=== PATIENT | female | born 1950 | race Caucasian/White ===

== ENCOUNTER 2017-05-12 22:03 | Inpatient (IN) ==
[2017-05-12] MEDS ORDERED: SODIUM CHLORIDE 0.9% 1,000 ML IV STA (22:34)
[2017-05-12] MEDS ORDERED: MEROPENEM 1,000 MG in SODIUM CHLORIDE 0.9% 100 ML IV STA (22:35)
[2017-05-12] MEDS ORDERED: MEROPENEM 1,000 MG VIAL IV ONE (22:42)
[2017-05-12 23:01] LABS: ABG HCO3 16.5 MMOL/L (20-26); ABG Oxygen Saturation 97.9 % (95-100); ABG PCO2 22.3 MM HG (35-48); ABG PH 7.487 (7.35-7.45); ABG PO2 98.9 MM HG (80-95); ABG TCO2 17.2 MMOL/L (23-27); Pt O2 Delivery Device Room Air
[2017-05-12] MEDS ORDERED: HALOPERIDOL 5 MG/ML AMP ONE (23:11)
[2017-05-12] MEDS ORDERED: HALOPERIDOL 5 MG/ML AMP IV STA (23:40)
[2017-05-12 23:42] LABS: Basophils % 0.2 % (0.0-0.8); Eosinophils % 0.1 % (0.00-10.9); Hematocrit 31.8 VOL% (35.7-47.0); Hemoglobin 11.8 GM/DL (12.0-16.0); Immature Granulocytes % 0.6 %; Immature Granulocytes Absolute 0.08 #; Lymphocytes # 0.8 10*3/uL (1.4-4.0); Lymphocytes % 6.4 % (21.3-54.2); Mean Corpuscular HGB Conc 37.1 GM/DL (32-36); Mean Corpuscular Hemoglobin 31 PG (27-34); Mean Corpuscular Volume 84.6 FL (87-102); Mean Platelet Volume 8.8 FL (9.6-12.0); Monocytes # 0.8 10*3/uL (0.11-0.8); Monocytes % 6.4 % (1.7-12.7); Neutrophils # 11.1 10*3/uL (1.4-7.4); Neutrophils % 86.3 % (38.7-73.9); Platelet Count 348 T/CUMM (130-400); Red Blood Count 3.76 MC/CUMM (3.8-5.5); Red Cell Distribution Width 13.3 % (9.3-17.3); White Blood Count 12.9 T/CUMM (4-12)
[2017-05-12] MEDS ORDERED: MAGNESIUM SULF RIDER 2 GM in PREMIX 1 EACH IV STA (23:47)
[2017-05-12] MEDS ORDERED: POTASSIUM CHLORIDE RIDER 20 MEQ in PREMIX 1 EACH IV STA (23:47)
[2017-05-12 23:49] LABS: Apearance,Urine CLOUDY (Clear); Bilirubin,Urine Negative (Negative); Blood, Urine Small mg/dL (Negative); Glucose,Urine (UA) Negative (Negative); Hyaline Casts,Urine 18 /LPF (0-3); Ketones,Urine 80 mg/dL (Negative); Mucus,Urine Occasional /LPF (Occasional); Nitrite,Urine Negative (Negative); Protein,Urine 100 MG/DL; RBC,Urine 28 /HPF (0-4); Urine Color Yellow (Yellow); Urine Urobilinogen < 2.0 EU/DL (0.2-1.0); WBC,Urine 576 /HPF (0-6)
[2017-05-12 23:51] LABS: Barbiturates Screen,Urine Positive (Negative); Benzodiazepines Screen,Urine Negative (Negative); Cannabinoid Screen,Urine Negative (Negative); Opiate Screen,Urine Positive (Negative); Phencyclidine Screen,Urine Negative (Negative)
[2017-05-12 23:52] LABS: INR 1.7; PT Patient Result 18.7 SECS
[2017-05-13] LABS: Lactic Acid 1.9 MMOL/L (0.4-2.0)
--- NOTE | 2017-05-13 | Emergency Department Note ---
Alban Ni Emily, am scribing for, and in the presence of, Raman Riggs MD 23: 00. Keely Ni Charles R, MD, personally performed the services described in this documentation, ascribed by Fe Phoenix in my presence, and it is both accurate and complete . Arrival - Arrival Chief Complaint: Altered Mental Status Stated Complaint: altered mental status ED Nursing Triage Note: Patient to ED via EMS as a transfer from [facility] ED for further evaluation of AMS, UTI, and hyponatremia. Patient was seen there with c/o AMS, weakness, and generalized pain. Patient is under pain management and transferring ED gave patient Narcan, Haldol, and Ativan for possible over use of her home medications that include norco and benzo's. Patient arrives to our ED with mumbled, slow speech, asking for "Imani" and was not able to provide answers to assess her orientation. Mode of Arrival: Stretcher Limitations: Altered Mental Status Source: RN Notes Reviewed Time Seen by Provider: 05/12/17 22:29 - History of Present Illness HPI Narrative: Pt is a 67 y/o female who was transferred from [facility] to ED for further evaluation of AMS, UTI, and hyponatremia. [facility] gave pt Narcan, Haldol, and Ativan for possible over use of her home medications (under pain management) that include norco and benzos. Pt was seen there with c/o AMS , weakness, and generalized pain. Pt is smacking lips, mumbling, and generalized weakness from sedatives FRAME HAND, along with beasley cath (from [facility]) in ED. Family is not in room with pt, at this time. According to chart from other facility, pt takes coumadin. Pt had CT Head wo contrast done at [facility] in which shows: When compared 12/26/16, no acute intracranial pathology. Chronic small vessel ischemic change of the deep white matter. 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 Along with EKG of NSR of 91, and cannot rule out anterior infract, age undetermined with abnormal ECG. Onset (ago): hour(s) Consistency: constant Severity: moderate Severity scale (1-10): 5 Quality: other (altered) Date of Last Menstrual Period: unknown Allergies/Adverse Reactions: Allergies Allergy/AdvReac Type Severity Reaction Status Date / Time acetaminophen Allergy RASH Verified 05/12/17 22:21 [From Darvocet-N] cephalexin [From Keflex] Allergy RASH Verified 05/12/17 22:21 Penicillins Allergy RASH Verified 05/12/17 22:21 propoxyphene Allergy RASH Verified 05/12/17 22:21 [From Darvocet-N] Sulfa (Sulfonamide Allergy RASH Verified 05/12/17 22:21 Antibiotics) Tetracycline Allergy RASH Verified 05/12/17 22:21 Home Medications: Home Medications Medication Instructions Recorded Confirmed Type amLODIPine [Norvasc] 5 mg PO DAILY #30 tablet 03/06/16 08/27/16 Rx levETIRAcetam [Levetiracetam] 500 mg PO BID #60 tablet 03/06/16 08/27/16 Rx Carvedilol [Coreg] 12.5 mg PO BID 08/27/16 08/27/16 History DULoxetine [Cymbalta] 30 mg PO BID 08/27/16 08/27/16 History Furosemide Tab [Lasix Tab] 20 mg PO DAILY PRN 08/27/16 08/27/16 History Gabapentin Cap/Tab [Neurontin 300 mg PO TID 08/27/16 08/27/16 History Cap/Tab] Topiramate 25 mg PO BID 08/27/16 08/27/16 History Triamterene/Hydrochlorothiazid 1 each PO DAILY 08/27/16 08/27/16 History [Triamterene-Hctz 37.5-25 mg Cp] Zolpidem Tartrate 10 mg PO BEDTIME 08/27/16 08/27/16 History clonazePAM TAB [KlonoPIN] 0.5 mg PO BID 08/27/16 08/27/16 History HYDROcodone/ACETAMIN 10-325 [[place] 1 tablet PO Q6HR #20 tablet 08/29/16 Rx 10-325] Warfarin [Coumadin] 5 mg PO DAILY@1800 #60 tablet 08/29/16 Rx Review of System - Review of System ROS unobtainable: due to mental status (secondary to UTI and Sedatives) Medical,Surgical,& Family Hx - Medical History Cardio: History of: CHF, CAD, Hypertension, [place], Pacemaker Psychological: History of: Anxiety Disorders, Behavior Problems, Depression Neurology: History of: Seizures, TIA HEENT: History of: Eye Problem (cataracts) Rheumatology: History of;: Fibromyalgia Respiratory: History of: COPD Gastrointestinal: History of: GERD, Hemorrhoids Musculoskeletal: History of: Back/Neck Problems, Musculoskeletal Problems (t7- t12 compression fractures) - Surgical History Cardiac Surgeries: Sugical HX of: Cardiac Catheterization, Cardiac Surgery (MVR and ?CABG) HEENT Surgeries: Surgical HX of: Tonsilectomy & Adenoidectomy Abdominal Surgeries: Surgical HX of: EGD Orthopedic Surgeries: Surgical HX of;: Orthopedic Surgery, Total Hip Replacement (left) - Family History Family History: Reports;: Family Cancer, Family Diabetes, Family Heart Disease ( Mom at age 71 of [place] and Dad at age 61 of [place]. ), Family Hypertension, Family Stroke - Social History Smoking Status: Unknown if ever smoked Frequency of Alcohol Use: Unknown Type of Drug Use: Unknown Marital Status: Single Lives With:: Alone Functional capacity: independent ambulation Exam Vital Signs: Vital Signs Temperature 97.9 F 05/12/17 22:06 Pulse Rate 100 H 05/12/17 22:06 Respiratory Rate 18 05/12/17 22:06 Blood Pressure 175/73 05/12/17 22:06 O2 Sat by Pulse Oximetry 97 05/12/17 22:06 - General Exam limited due to: other (expressive aphasia) - Head Head exam: Present: atraumatic, normocephalic - Eye Eye exam: Present: other (dilated pupils, not pinpoint) - ENT ENT exam: Present: mucous membranes dry (smacking lips). Absent: mucous membranes moist - Neck Neck exam: Present: full ROM - Chest Chest inspection: Present: symmetric chest wall rise - Respiratory Respiratory exam: Present: rhonchi (bilateral). Absent: accessory muscle use, respiratory distress - Cardiovascular Cardiovascular exam: Present: tachycardia, normal heart sounds - Abdominal Exam Abdominal exam: Present: soft, normal bowel sounds - Extremities Exam Extremities exam: Present: full ROM. Absent: pedal edema - Neurological Exam Neurological exam: Present: alert, oriented X3, CN II-XII intact. Absent: motor sensory deficit - Skin Skin exam: Present: warm, dry Course - Consultations Consultation #1: Hospitalist will admit patient Time: 23:45 Results - Labs CBC & BMP: 05/12/17 23:01 Lab Results: I have reviewed the patients labs Labs: Laboratory Tests 05/12/17 22:55 ABG pH 7.487 H ABG pCO2 22.3 L ABG pO2 98.9 H ABG HCO3 16.5 L ABG Total CO2 17.2 L ABG O2 Saturation 97.9 ABG Base Excess -5.0 L FiO2 21.00 Laboratory Tests 05/12/17 23:01 WBC 12.9 H RBC 3.76 L Hgb 11.8 L Hct 31.8 L MCV 84.6 L MCHC 37.1 H Plt Count 348 MPV 8.8 L Neut % (Auto) 86.3 H Lymph % (Auto) 6.4 L Neut # (Auto) 11.1 H Lymph # (Auto) 0.8 L Laboratory Tests 05/12/17 23:01 Urine Color Yellow Urine Appearance Cloudy Urine pH 6.0 Ur Specific [place] 1.010 Urine Protein 100 Urine Glucose (UA) Negative Urine Ketones 80 Urine Blood Small Urine Nitrate Negative Urine Urobilinogen < 2.0 H Urine Leukocytes Large H Urine RBC 28 Urine WBC 576 Urine WBC Clumps Many Hyaline Casts 18 Urine Mucus Occasional Critical Care Time Critical Care Time: Yes Total Critical Care Time: 60 Disposition Clinical Impression: Altered mental status, Sepsis, Hyponatremia, Hypomagnesemia, UTI (urinary tract infection), Confusion, Delirium, Hypokalemia, Opiate intoxication Case discussed with: patient Disposition: Still a Patient Condition: Guarded Time of Disposition: 23:46
[2017-05-13] MEDS ORDERED: HYDROCORTISONE 100 MG VIAL IV STA (00:01)
[2017-05-13] MEDS ORDERED: MAGNESIUM SULF RIDER 50 ML IV ONE (00:02)
[2017-05-13 00:03] LABS: Alanine Aminotransferase 23 U/L (13-56); Albumin 3.9 G/DL (3.4-5.0); Alkaline Phosphatase 133 U/L (45-117); Aspartate Amino Transferase 28 U/L (0-37); Blood Urea Nitrogen 5 MG/DL (7-18); Calcium 8.8 MG/DL (8.5-10.1); Glucose 133 MG/DL (74-106); Magnesium 1.5 MG/DL (1.8-2.4); Osmolality,Calculated 238.3 MOS/KG (273-304); Potassium 3.5 MMOL/L (3.5-5.1); Total Protein 7.9 G/DL (6.4-8.3)
[2017-05-13 00:05] LABS: Ammonia 20 UMOL/L (11-32)
[2017-05-13 00:38] LABS: Prolactin 28.3 NG/ML
[2017-05-13 00:40] LABS: Troponin I Only 0.089 NG/ML (0.00-0.045)
[2017-05-13 00:41] LABS: Sodium 119 MMOL/L (136-145)
[2017-05-13] MEDS ORDERED: HYDROCORTISONE 100 MG VIAL ONE (00:45)
--- NOTE | 2017-05-13 00:55 | Hospitalist History & Physical ---
Assessment and Plan (1) Opiate intoxication Status: Acute Current Visit: Yes (2) Altered mental status Status: Resolved Current Visit: No (3) Hypertension Status: Chronic Current Visit: No (4) Coronary artery disease Status: Chronic Current Visit: No Qualifiers: Coronary Disease-Associated Artery/Lesion type: [place] artery [place] vs. transplanted heart: [place] heart Associated angina: without angina Qualified Code(s): I25.10 - Atherosclerotic heart disease of [place] coronary artery without angina pectoris (5) Hyponatremia Status: Acute Current Visit: No (6) Mitral valve replaced Status: Chronic Current Visit: No (7) Sepsis Status: Acute Current Visit: Yes (8) Hyponatremia Status: Acute Current Visit: Yes (9) UTI (urinary tract infection) Status: Acute Current Visit: Yes (10) Confusion Status: Acute Assessment and plan: Plan for this patient will be admitting her to the unit. Will start on IV antibiotics for her urinary tract infection. Will follow sepsis protocol. We will water restrict her to 1.5 L give her normal saline. Vital signs are stable. Repeat labs at 7 AM and have Haldol available as needed for agitation. Patient is on Coumadin for problems with her mitral valve. Her mental status makes it very difficult to assess compliance with her Coumadin. She subtherapeutic at 1.7 right now. Right now she is too sedated to take her Coumadin therefore I am going to order Lovenox 1 ngoc per weekly every 12 hours. Patient's magnesium is being replaced in the ER. Current Visit: Yes (11) Delirium Status: Acute Current Visit: Yes History of Present Illness Chief complaint: Altered mental status History of present illness: Ms. Iglesias is a 67 year old female with past medical history significant for altered mental status, hypokalemia, mitral valve replacement, chronic anticoagulation who was received as a transfer from [facility]. She presented there with altered mental status urinary tract infection hyponatremia. She was found to be having generalized weakness. She is under pain management. The patient became agitated and they gave her Narcan Haldol and Ativan for possible overuse of her home medications. She arrived at our hospital mumbling with slurred speech asking for Stacey and was not able to provide any answers or to assess orientation. Currently she is significantly sedated vital signs are stable. She has been given Haldol here. Home Medications Medication Instructions Recorded Confirmed Type amLODIPine [Norvasc] 5 mg PO DAILY #30 tablet 03/06/16 08/27/16 Rx levETIRAcetam [Levetiracetam] 500 mg PO BID #60 tablet 03/06/16 08/27/16 Rx Carvedilol [Coreg] 12.5 mg PO BID 08/27/16 08/27/16 History DULoxetine [Cymbalta] 30 mg PO BID 08/27/16 08/27/16 History Furosemide Tab [Lasix Tab] 20 mg PO DAILY PRN 08/27/16 08/27/16 History Gabapentin Cap/Tab [Neurontin 300 mg PO TID 08/27/16 08/27/16 History Cap/Tab] Topiramate 25 mg PO BID 08/27/16 08/27/16 History Triamterene/Hydrochlorothiazid 1 each PO DAILY 08/27/16 08/27/16 History [Triamterene-Hctz 37.5-25 mg Cp] Zolpidem Tartrate 10 mg PO BEDTIME 08/27/16 08/27/16 History clonazePAM TAB [KlonoPIN] 0.5 mg PO BID 08/27/16 08/27/16 History HYDROcodone/ACETAMIN 10-325 [[place] 1 tablet PO Q6HR #20 tablet 08/29/16 Rx 10-325] Warfarin [Coumadin] 5 mg PO DAILY@1800 #60 tablet 08/29/16 Rx Allergies Allergy/AdvReac Type Severity Reaction Status Date / Time acetaminophen Allergy RASH Verified 05/12/17 22:21 [From Darvocet-N] cephalexin [From Keflex] Allergy RASH Verified 05/12/17 22:21 Penicillins Allergy RASH Verified 05/12/17 22:21 propoxyphene Allergy RASH Verified 05/12/17 22:21 [From Darvocet-N] Sulfa (Sulfonamide Allergy RASH Verified 05/12/17 22:21 Antibiotics) Tetracycline Allergy RASH Verified 05/12/17 22:21 Medical,Surgical,& Family Hx - Medical History Cardio: History of: CHF, CAD, Hypertension, [place], Pacemaker Psychological: History of: Anxiety Disorders, Behavior Problems, Depression Neurology: History of: Seizures, TIA HEENT: History of: Eye Problem (cataracts) Rheumatology: History of;: Fibromyalgia Respiratory: History of: COPD Gastrointestinal: History of: GERD, Hemorrhoids Musculoskeletal: History of: Back/Neck Problems, Musculoskeletal Problems (t7- t12 compression fractures) - Surgical History Cardiac Surgeries: Sugical HX of: Cardiac Catheterization, Cardiac Surgery (MVR and ?CABG) HEENT Surgeries: Surgical HX of: Tonsilectomy & Adenoidectomy Abdominal Surgeries: Surgical HX of: EGD Orthopedic Surgeries: Surgical HX of;: Orthopedic Surgery, Total Hip Replacement (left) - Family History Family History: Reports;: Family Cancer, Family Diabetes, Family Heart Disease ( Mom at age 71 of [place] and Dad at age 61 of [place]. ), Family Hypertension, Family Stroke - Social History Smoking Status: Unknown if ever smoked Frequency of Alcohol Use: Unknown Type of Drug Use: Unknown ROS unobtainable: due to delirium Exam - Constitutional Vitals: Period Temp Pulse Resp BP Sys/Reyes Pulse Ox Last 24 Hr 97.9 F-97.9 F 100-100 18-18 175-175/73-73 97 - General Exam limited due to: Delirium secondary to either UTI or Haldol - Head Head exam: Present: atraumatic, normocephalic - Eye Eye exam: Present: other (dilated pupils, not pinpoint) but reactive - ENT ENT exam: Present: mucous membranes dry - Neck Neck exam: Present: full ROM - Chest Chest inspection: Present: symmetric chest wall rise - Respiratory Respiratory exam: Present: rhonchi (bilateral). Absent: accessory muscle use, respiratory distress - Cardiovascular Cardiovascular exam: Present: tachycardia, normal heart sounds - Abdominal Exam Abdominal exam: Present: soft, normal bowel sounds - Extremities Exam Extremities exam: Present: full ROM. Absent: pedal edema - Neurological Exam Neurological exam: Present: alert, oriented X3, CN II-XII intact. Absent: motor sensory deficit - Skin Skin exam: Present: warm, dry Results - Labs CBC & BMP: 05/12/17 23:01 05/12/17 23:01
[2017-05-13] MEDS ORDERED: ALBUTEROL 2.5 MG/3 ML NEB RESP TX PRN (00:59)
[2017-05-13] MEDS ORDERED: ONDANSETRON 4 MG/2 ML VIAL IV PRN (00:59)
[2017-05-13] MEDS ORDERED: SODIUM CHLORIDE 0.9% 1,000 ML IV SCH (01:00)
[2017-05-13] MEDS ORDERED: HALOPERIDOL 5 MG/ML AMP IV PRN (01:07)
[2017-05-13] MEDS: ENOXAPARIN 80 MG/0.8 ML SYRINGE SUBCUT SCH ×2 (02:05→12:58)
[2017-05-13] MEDS: PANTOPRAZOLE 40 MG VIAL IV SCH (02:30)
[2017-05-13] MEDS: hydrALAZINE 20 MG/1 ML VIAL IV PRN (02:45)
[2017-05-13] MEDS: MEROPENEM 1,000 MG in SODIUM CHLORIDE 0.9% 100 ML IV SCH ×3 (03:00→16:00)
[2017-05-13 03:41] LABS: Apearance,Urine CLEAR (Clear); Bilirubin,Urine Negative (Negative); Blood, Urine Negative (Negative); Glucose,Urine (UA) 50 mg/dL (Negative); Ketones,Urine 80 mg/dL (Negative); Mucus,Urine Occasional /LPF (Occasional); Nitrite,Urine Negative (Negative); Protein,Urine 30 MG/DL; Urine Color Straw (Yellow); Urine Specific Gravity 1.008 (1.001-1.035); Urine Urobilinogen < 2.0 EU/DL (0.2-1.0); WBC,Urine 6 /HPF (0-6)
[2017-05-13 05:41] LABS: INR 1.8; PT Patient Result 19.4 SECS
--- NOTE | 2017-05-13 06:52 | XRay Report ---
XR chest 1V portable Indication: Altered mental status Comparison: 05 March 2016 Findings: The heart and mediastinum are stable in size and configuration with cardiac surgery changes. Pacemaker device is unchanged in position. The pulmonary vascularity is normal in caliber. Lung volumes are increased with prominent bronchial markings. No lung infiltrates, effusions, pneumothorax or other abnormality is demonstrated. Impression: Chronic lung and cardiac surgery changes. No acute process or significant change. PROCEDURE INTERPRETED AT [facility] DEPARTMENT OF RADIOLOGY Final Report Signed by: Dr. Christian Velasco
[2017-05-13 07:12] LABS: Basophils % 0.1 % (0.0-0.8); Hematocrit 33.5 VOL% (35.7-47.0); Hemoglobin 12.2 GM/DL (12.0-16.0); Immature Granulocytes % 0.9 %; Immature Granulocytes Absolute 0.11 #; Lymphocytes # 0.7 10*3/uL (1.4-4.0); Lymphocytes % 5.6 % (21.3-54.2); Mean Corpuscular HGB Conc 36.4 GM/DL (32-36); Mean Corpuscular Hemoglobin 31 PG (27-34); Mean Corpuscular Volume 85.5 FL (87-102); Mean Platelet Volume 8.8 FL (9.6-12.0); Monocytes # 0.5 10*3/uL (0.11-0.8); Monocytes % 3.8 % (1.7-12.7); Neutrophils % 89.6 % (38.7-73.9); Platelet Count 345 T/CUMM (130-400); Red Blood Count 3.92 MC/CUMM (3.8-5.5); Red Cell Distribution Width 13.4 % (9.3-17.3); White Blood Count 12.3 T/CUMM (4-12)
--- NOTE | 2017-05-13 08:37 | EKG Report ---
Stationary ECG Study [facility] ER Test Date: 05/12/2017 10:48:49 PM Pat Name: ARVIN ARIZA Department: Room: 128 Gender: F Bilingual Office Assistant: : 1950 Requested by: Raman Ramirez Order Number: [id number] Roman MD: ALISSON WALL Intervals [place] Rate: 104 P: 68 NV: 120 QRS: 50 QRSD: 109 T: 48 QT: 348 QTc: 408 Interpretive Statements SINUS TACHYCARDIA POSSIBLE INFERIOR MYOCARDIAL INFARCTION, PROBABLY OLD ST DEPRESSION, CONSIDER SUBENDOCARDIAL INJURY Electronically Signed On 05-13-17 10:37:06 CDT by ALISSON WALL [email or web address]
[2017-05-13] MEDS ORDERED: PANTOPRAZOLE 40 MG TABLET PO SCH (09:00)
[2017-05-13] MEDS: SODIUM CHLORIDE 3% INJ 500 ML IV SCH (09:20)
[2017-05-13 09:29] LABS: Bilirubin,Total 0.5 MG/DL (0.2-1.0); Calcium 8.7 MG/DL (8.5-10.1); Osmolality,Calculated 237.3 MOS/KG (273-304); Potassium 3.2 MMOL/L (3.5-5.1); Total Protein 8.2 G/DL (6.4-8.3)
--- NOTE | 2017-05-13 11:59 | Hospitalist Progress Note ---
Assessment and Plan (1) Sepsis Status: Acute Assessment and plan: Due to fever and altered mental status will obtain an LP. Consult Dr. Purdy for infectious disease, continue meropenem Current Visit: Yes (2) Delirium Status: Acute Assessment and plan: Patient given Narcan already but did not improve her mental status. Sodium is low we will start her on 3% normal saline. Concerned about meningitis or encephalitis. Will have Dr. Purdy and Dr. Le to see. Would like to get MRI when she is able to hold still. Will use Ativan for agitation Current Visit: Yes (3) Hypertension Status: Chronic Assessment and plan: Patient unable to take p.o. medicines at this time will use hydralazine as needed as needed Current Visit: No (4) Seizure disorder Status: Chronic Assessment and plan: Patient unable to take anything orally at this time will restart Keppra 500 mg IV every 12 hours Current Visit: No (5) Mitral valve replaced Status: Chronic Assessment and plan: received bioprosthetic valve, cont lovenox, hold coumadin not taking oral meds at this time. Current Visit: No (6) Hyponatremia Status: Acute Assessment and plan: Continue 3% normal saline will monitor sodium every 2 Current Visit: Yes (7) Hypomagnesemia Status: Acute Assessment and plan: Replaced, will recheck today Current Visit: Yes (8) UTI (urinary tract infection) Status: Acute Assessment and plan: Continue meropenem, await cultures Current Visit: Yes (9) Hypokalemia Status: Acute Assessment and plan: Replacing recheck in a.m. Current Visit: Yes (10) Opiate intoxication Status: Acute Assessment and plan: Hold all narcotics and sedating medicines at this time. Patient had received Narcan but did not improve her mental status. Current Visit: Yes Hospitalist: Subjective Interval history: Patient combative and confused. Neck seems stiff. She is running fevers. I have asked Dr. Purdy to see her today. Exam - Constitutional Vitals: Period Temp Pulse Resp BP Sys/Reyes Pulse Ox Last 24 Hr 97.9 F-100.0 F 77-110 12-22 98-212/67-113 96-99 Exam: Heart Rate-[tachy] Lungs-[CTAB] GI-[+bs soft, NT] Ext-[no edema] Neuro [Motor 5/5, combative, agitated, tardive dyskinesai psych agitated mood and affect General [mild acute distress] Results - Labs CBC & BMP: 05/13/17 07:07 05/13/17 10:40 Lab Results: I have reviewed the past 24 hour labs - Diagnostic Findings Procedure: Chest x-ray: report reviewed by me (Nothing acute but does have chronic COPD), CT: report reviewed by me (Head shows left frontal and cerebellar changes which are old nothing new per outside facility records)
[2017-05-13 13:28] LABS: Calcium 8.2 MG/DL (8.5-10.1); Osmolality,Calculated 245.6 MOS/KG (273-304); Potassium 3.4 MMOL/L (3.5-5.1)
[2017-05-13] MEDS: POTASSIUM CHLORIDE RIDER 10 MEQ in PREMIX 1 EACH IV SCH ×4 (13:30→21:56)
[2017-05-13] MEDS: LORazepam 2 MG/1 ML VIAL IV PRN ×2 (13:42→22:05)
--- NOTE | 2017-05-13 15:21 | Infectious Disease Consult ---
Assessment and Plan (1) Confusion Status: Acute Assessment and plan: Not sure cause, suspect toxic metabolic rather than infectious. She really does not have significant fever. Her neck is supple some not convinced about meningitis but it could be viral. Recommend agents: 1. Agree with lumbar puncture and studies ordered 2. Add acyclovir pending receipt of LP results Thank you very much for the consult. Will follow. Discussed with Dr. Ramsey Current Visit: Yes (2) UTI (urinary tract infection) Status: Acute Assessment and plan: She had pyuria on admission but that has resolved today. She is on empiric meropenem as she is allergic to cephalosporins and penicillin. Will follow up on urine culture results. Current Visit: Yes (3) Hyponatremia Status: Acute Current Visit: No (4) Mitral valve replaced Status: Chronic Current Visit: No History of Present Illness Chief complaint: Fever History of present illness: History obtained from chart as patient was completely confused. Ms. Iglesias is a 67 year old female who presented also with altered mental state. She is mostly nonverbal but is awake and fiddles with everything. Apparently she was noted to be confused and so taken to an outside hospital. There she was found to be severely hyponatremic and so she is transferred here. Temperature of 100 F was noted. Urinalysis suggestive of urinary tract infection. I am asked to assist with management. She is admitted to ICU because of confusion; she has not required vasopressor support. Patient apparently has frequent emergency room visits to the same outside hospital she was transferred here from. Home Medications Medication Instructions Recorded Confirmed Type amLODIPine [Norvasc] 5 mg PO DAILY #30 tablet 03/06/16 08/27/16 Rx levETIRAcetam [Levetiracetam] 500 mg PO BID #60 tablet 03/06/16 08/27/16 Rx Carvedilol [Coreg] 12.5 mg PO BID 08/27/16 08/27/16 History DULoxetine [Cymbalta] 30 mg PO BID 08/27/16 08/27/16 History Furosemide Tab [Lasix Tab] 20 mg PO DAILY PRN 08/27/16 08/27/16 History Gabapentin Cap/Tab [Neurontin 300 mg PO TID 08/27/16 08/27/16 History Cap/Tab] Topiramate 25 mg PO BID 08/27/16 08/27/16 History Triamterene/Hydrochlorothiazid 1 each PO DAILY 08/27/16 08/27/16 History [Triamterene-Hctz 37.5-25 mg Cp] Zolpidem Tartrate 10 mg PO BEDTIME 08/27/16 08/27/16 History clonazePAM TAB [KlonoPIN] 0.5 mg PO BID 08/27/16 08/27/16 History HYDROcodone/ACETAMIN 10-325 [[place] 1 tablet PO Q6HR #20 tablet 08/29/16 Rx 10-325] Warfarin [Coumadin] 5 mg PO DAILY@1800 #60 tablet 08/29/16 Rx Allergies Allergy/AdvReac Type Severity Reaction Status Date / Time acetaminophen Allergy RASH Verified 05/12/17 22:21 [From Darvocet-N] cephalexin [From Keflex] Allergy RASH Verified 05/12/17 22:21 Penicillins Allergy RASH Verified 05/12/17 22:21 propoxyphene Allergy RASH Verified 05/12/17 22:21 [From Darvocet-N] Sulfa (Sulfonamide Allergy RASH Verified 05/12/17 22:21 Antibiotics) Tetracycline Allergy RASH Verified 05/12/17 22:21 ROS unobtainable: due to mental status Medical,Surgical,& Family Hx - Medical History Cardio: History of: CHF, CAD, Hypertension, [place], Pacemaker Psychological: History of: Anxiety Disorders, Behavior Problems, Depression Neurology: History of: Seizures, TIA HEENT: History of: Eye Problem (cataracts) Rheumatology: History of;: Fibromyalgia Respiratory: History of: COPD Gastrointestinal: History of: GERD, Hemorrhoids Musculoskeletal: History of: Back/Neck Problems, Musculoskeletal Problems (t7- t12 compression fractures) - Surgical History Cardiac Surgeries: Sugical HX of: Cardiac Catheterization, Cardiac Surgery (MVR and ?CABG) HEENT Surgeries: Surgical HX of: Tonsilectomy & Adenoidectomy Abdominal Surgeries: Surgical HX of: EGD Orthopedic Surgeries: Surgical HX of;: Orthopedic Surgery, Total Hip Replacement (left) - Family History Family History: Reports;: Family Cancer, Family Diabetes, Family Heart Disease ( Mom at age 71 of [place] and Dad at age 61 of [place]. ), Family Hypertension, Family Stroke - Social History Smoking Status: Unknown if ever smoked Frequency of Alcohol Use: Unknown Type of Drug Use: Unknown Infectious Disease Exam H&P - Constitutional Vitals: Vital Signs Temp Pulse Resp BP Pulse Ox 100.0 F H 83 20 174/91 98 05/13/17 12:00 05/13/17 14:00 05/13/17 15:00 05/13/17 14:00 05/13/17 14:00 Intake and Output 05/12/17 05/13/17 05/13/17 23:59 07:59 15:59 Intake Total 200 / 200 1350 / 1350 100 / 100 Output Total 505 / 505 500 / 500 Balance 200 / 200 845 / 845 -400 / -400 Intake: IV 1350 / 1350 100 / 100 Magnesium Sulf Robert 2 gm 50 / 50 /50 ml In Premix 1 Each @ 25 mls/hr IV 1X ED STA Rx#:[id number] Merrem 1,000 mg In Ns 100 200 / 200 ml @ 200 mls/hr IV Q8H JESENIA Rx#:[id number] Potassium Chloride Robert 100 / 100 10 Meq/100 ml In Premix 1 Each @ 100 mls/hr IV Q1H JESENIA Rx#:[id number] Potassium Chloride Robert 100 / 100 20 Meq/100 ml In Premix 1 Each @ 50 mls/hr IV 1X ED STA Rx#:[id number] Ns 1,000 ml @ 999 mls/hr 1000 / 1000 IV 1X ED BOLUS STA Rx#: [id number] Intake - Additional IV 200 / 200 Volume (mLs) Right Forearm 200 / 200 Output: Urine 505 / 505 500 / 500 Other: Voiding Method Indwelling Catheter Indwelling Catheter Weight 72.575 kg 56.064 kg Patient Weight 05/13/17 23:59 Weight 56.064 kg Exam: General: Patient agitated, pulling at everything, no verbal interaction no eye contact HEENT: Mucous membranes pink and moist, anicteric acyanotic, NATALIE, would not open her mouth inspection Neck: Supple, no thyroid gland enlargement Respiratory system: Breath sounds vesicular, no crepitations or wheezes Cardiovascular: Normal S1 and S2, no murmurs appreciated Abdomen: Normal bowel sounds, soft nontender throughout, no organomegaly or mass Genitourinary: No suprapubic pain or bladder distention, clear urine from [place] catheter Extremities: no edema Skin: No rash Reports - Labs CBC & BMP: 05/13/17 07:07 05/13/17 14:38 Labs: Laboratory Results - last 24 hr 05/12/17 05/12/17 05/12/17 22:55 23:01 23:01 WBC 12.9 H RBC 3.76 L Hgb 11.8 L Hct 31.8 L MCV 84.6 L MCH 31 MCHC 37.1 H RDW 13.3 Plt Count 348 MPV 8.8 L Neut % (Auto) 86.3 H Lymph % (Auto) 6.4 L [place] % (Auto) 6.4 Eos % (Auto) 0.1 Baso % (Auto) 0.2 Neut # (Auto) 11.1 H Lymph # (Auto) 0.8 L [place] # (Auto) 0.8 Eos # (Auto) 0.0 Baso # (Auto) 0.0 Immature Gran % 0.6 Nucleated RBC % 0.0 Immature Gran # 0.08 Nucleated RBCs # 0.00 Immature Plt Fraction 0.0 INR 1.7 PT Patient/Control Mix 18.7 D ABG pH 7.487 H ABG pCO2 22.3 L ABG pO2 98.9 H ABG HCO3 16.5 L ABG Total CO2 17.2 L ABG O2 Saturation 97.9 ABG Base Excess -5.0 L FiO2 21.00 Sodium Potassium Chloride Carbon Dioxide Anion Gap BUN Creatinine GFR Calculation BUN/Creatinine Ratio Glucose Calculated Osmolality Lactic Acid Calcium Magnesium Total Bilirubin AST ALT Alkaline Phosphatase Ammonia Troponin I Total Protein Albumin Globulin Albumin/Globulin Ratio Prolactin Random Cortisol Urine Color Urine Appearance Urine pH Ur Specific [place] Urine Protein Urine Glucose (UA) Urine Ketones Urine Blood Urine Nitrate Urine Bilirubin Urine Urobilinogen Urine Leukocytes Urine RBC Urine WBC Urine WBC Clumps Hyaline Casts Urine Mucus Ur Culture Indicated? Urine Osmolality Ur Random Creatinine Ur Random Sodium Urine Opiates Screen Ur Barbiturates Screen Ur Phencyclidine Scrn U Amphetamine/Methamph U Benzodiazepines Scrn U Cocaine Metab Screen U Cannabinoids Screen Serum Alcohol Treponema pallidum IgG Blood Type Antibody Screen 05/12/17 05/12/17 05/12/17 23:01 23:01 23:01 WBC RBC Hgb Hct MCV MCH MCHC RDW Plt Count MPV Neut % (Auto) Lymph % (Auto) [place] % (Auto) Eos % (Auto) Baso % (Auto) Neut # (Auto) Lymph # (Auto) [place] # (Auto) Eos # (Auto) Baso # (Auto) Immature Gran % Nucleated RBC % Immature Gran # Nucleated RBCs # Immature Plt Fraction INR PT Patient/Control Mix ABG pH ABG pCO2 ABG pO2 ABG HCO3 ABG Total CO2 ABG O2 Saturation ABG Base Excess FiO2 Sodium 119 L* Potassium 3.5 Chloride 84 L Carbon Dioxide 18 L Anion Gap 20.5 H BUN 5 L Creatinine 0.50 L GFR Calculation 103 BUN/Creatinine Ratio 10.00 Glucose 133 H Calculated Osmolality 238.3 L Lactic Acid 1.9 Calcium 8.8 Magnesium 1.5 L Total Bilirubin 0.50 AST 28 ALT 23 Alkaline Phosphatase 133 H Ammonia 20 Troponin I 0.089 H Total Protein 7.9 Albumin 3.9 Globulin 4.0 H Albumin/Globulin Ratio 0.9 L Prolactin Random Cortisol Urine Color Yellow Urine Appearance Cloudy Urine pH 6.0 Ur Specific [place] 1.010 Urine Protein 100 Urine Glucose (UA) Negative Urine Ketones 80 Urine Blood Small Urine Nitrate Negative Urine Bilirubin Negative Urine Urobilinogen < 2.0 H Urine Leukocytes Large H Urine RBC 28 Urine WBC 576 Urine WBC Clumps Many Hyaline Casts 18 Urine Mucus Occasional Ur Culture Indicated? Results to follow Urine Osmolality Ur Random Creatinine Ur Random Sodium Urine Opiates Screen Positive H Ur Barbiturates Screen Positive H Ur Phencyclidine Scrn Negative U Amphetamine/Methamph Negative U Benzodiazepines Scrn Negative U Cocaine Metab Screen Negative U Cannabinoids Screen Negative Serum Alcohol < 15 L Treponema pallidum IgG Blood Type Antibody Screen 05/12/17 05/13/17 05/13/17 23:30 02:20 03:00 WBC RBC Hgb Hct MCV MCH MCHC RDW Plt Count MPV Neut % (Auto) Lymph % (Auto) [place] % (Auto) Eos % (Auto) Baso % (Auto) Neut # (Auto) Lymph # (Auto) [place] # (Auto) Eos # (Auto) Baso # (Auto) Immature Gran % Nucleated RBC % Immature Gran # Nucleated RBCs # Immature Plt Fraction INR PT Patient/Control Mix ABG pH ABG pCO2 ABG pO2 ABG HCO3 ABG Total CO2 ABG O2 Saturation ABG Base Excess FiO2 Sodium Potassium Chloride Carbon Dioxide Anion Gap BUN Creatinine GFR Calculation BUN/Creatinine Ratio Glucose Calculated Osmolality Lactic Acid Calcium Magnesium Total Bilirubin AST ALT Alkaline Phosphatase Ammonia Troponin I Total Protein Albumin Globulin Albumin/Globulin Ratio Prolactin Random Cortisol Urine Color Urine Appearance Urine pH Ur Specific [place] Urine Protein Urine Glucose (UA) Urine Ketones Urine Blood Urine Nitrate Urine Bilirubin Urine Urobilinogen Urine Leukocytes Urine RBC Urine WBC Urine WBC Clumps Hyaline Casts Urine Mucus Ur Culture Indicated? Urine Osmolality Ur Random Creatinine 14 Ur Random Sodium 137.0 Urine Opiates Screen Ur Barbiturates Screen Ur Phencyclidine Scrn U Amphetamine/Methamph U Benzodiazepines Scrn U Cocaine Metab Screen U Cannabinoids Screen Serum Alcohol Treponema pallidum IgG Blood Type A POSITIVE Antibody Screen Negative 05/13/17 05/13/17 05/13/17 03:00 04:35 04:35 WBC RBC Hgb Hct MCV MCH MCHC RDW Plt Count MPV Neut % (Auto) Lymph % (Auto) [place] % (Auto) Eos % (Auto) Baso % (Auto) Neut # (Auto) Lymph # (Auto) [place] # (Auto) Eos # (Auto) Baso # (Auto) Immature Gran % Nucleated RBC % Immature Gran # Nucleated RBCs # Immature Plt Fraction INR 1.8 PT Patient/Control Mix 19.4 ABG pH ABG pCO2 ABG pO2 ABG HCO3 ABG Total CO2 ABG O2 Saturation ABG Base Excess FiO2 Sodium Potassium Chloride Carbon Dioxide Anion Gap BUN Creatinine GFR Calculation BUN/Creatinine Ratio Glucose Calculated Osmolality Lactic Acid 1.4 Calcium Magnesium Total Bilirubin AST ALT Alkaline Phosphatase Ammonia Troponin I Total Protein Albumin Globulin Albumin/Globulin Ratio Prolactin Random Cortisol Urine Color Straw Urine Appearance Clear Urine pH 6.0 Ur Specific [place] 1.008 Urine Protein 30 Urine Glucose (UA) 50 Urine Ketones 80 Urine Blood Negative Urine Nitrate Negative Urine Bilirubin Negative Urine Urobilinogen < 2.0 H Urine Leukocytes Negative Urine RBC Urine WBC 6 Urine WBC Clumps Hyaline Casts Urine Mucus Occasional Ur Culture Indicated? Ordered separately Urine Osmolality Ur Random Creatinine Ur Random Sodium Urine Opiates Screen Ur Barbiturates Screen Ur Phencyclidine Scrn U Amphetamine/Methamph U Benzodiazepines Scrn U Cocaine Metab Screen U Cannabinoids Screen Serum Alcohol Treponema pallidum IgG Blood Type Antibody Screen 05/13/17 05/13/17 05/13/17 04:35 07:07 07:07 WBC 12.3 H RBC 3.92 Hgb 12.2 Hct 33.5 L MCV 85.5 L MCH 31 MCHC 36.4 H RDW 13.4 Plt Count 345 MPV 8.8 L Neut % (Auto) 89.6 H Lymph % (Auto) 5.6 L [place] % (Auto) 3.8 Eos % (Auto) 0.0 Baso % (Auto) 0.1 Neut # (Auto) 11.0 H Lymph # (Auto) 0.7 L [place] # (Auto) 0.5 Eos # (Auto) 0.0 Baso # (Auto) 0.0 Immature Gran % 0.9 Nucleated RBC % 0.0 Immature Gran # 0.11 Nucleated RBCs # 0.00 Immature Plt Fraction 0.0 INR PT Patient/Control Mix ABG pH ABG pCO2 ABG pO2 ABG HCO3 ABG Total CO2 ABG O2 Saturation ABG Base Excess FiO2 Sodium 119 L* Potassium 3.2 L Chloride 85 L Carbon Dioxide 19 L Anion Gap 18.2 H BUN 5 L Creatinine 0.60 GFR Calculation 87 BUN/Creatinine Ratio 8.00 Glucose 123 H Calculated Osmolality 237.3 L Lactic Acid Calcium 8.7 Magnesium Total Bilirubin 0.50 AST 26 ALT 22 Alkaline Phosphatase 134 H Ammonia Troponin I Total Protein 8.2 Albumin 4.0 Globulin 4.2 H Albumin/Globulin Ratio 0.9 L Prolactin Random Cortisol 59.8 Urine Color Urine Appearance Urine pH Ur Specific [place] Urine Protein Urine Glucose (UA) Urine Ketones Urine Blood Urine Nitrate Urine Bilirubin Urine Urobilinogen Urine Leukocytes Urine RBC Urine WBC Urine WBC Clumps Hyaline Casts Urine Mucus Ur Culture Indicated? Urine Osmolality Ur Random Creatinine Ur Random Sodium Urine Opiates Screen Ur Barbiturates Screen Ur Phencyclidine Scrn U Amphetamine/Methamph U Benzodiazepines Scrn U Cocaine Metab Screen U Cannabinoids Screen Serum Alcohol Treponema pallidum IgG Blood Type Antibody Screen 05/13/17 05/13/17 05/13/17 10:40 12:52 12:52 WBC RBC Hgb Hct MCV MCH MCHC RDW Plt Count MPV Neut % (Auto) Lymph % (Auto) [place] % (Auto) Eos % (Auto) Baso % (Auto) Neut # (Auto) Lymph # (Auto) [place] # (Auto) Eos # (Auto) Baso # (Auto) Immature Gran % Nucleated RBC % Immature Gran # Nucleated RBCs # Immature Plt Fraction INR PT Patient/Control Mix ABG pH ABG pCO2 ABG pO2 ABG HCO3 ABG Total CO2 ABG O2 Saturation ABG Base Excess FiO2 Sodium 124 L 124 L 123 L Potassium 3.4 L Chloride 90 L Carbon Dioxide 23 Anion Gap 14.4 BUN 4 L Creatinine 0.60 GFR Calculation 87 BUN/Creatinine Ratio 6.00 Glucose 102 Calculated Osmolality 245.6 L Lactic Acid Calcium 8.2 L Magnesium Total Bilirubin AST ALT Alkaline Phosphatase Ammonia Troponin I Total Protein Albumin Globulin Albumin/Globulin Ratio Prolactin Random Cortisol Urine Color Urine Appearance Urine pH Ur Specific [place] Urine Protein Urine Glucose (UA) Urine Ketones Urine Blood Urine Nitrate Urine Bilirubin Urine Urobilinogen Urine Leukocytes Urine RBC Urine WBC Urine WBC Clumps Hyaline Casts Urine Mucus Ur Culture Indicated? Urine Osmolality Ur Random Creatinine Ur Random Sodium Urine Opiates Screen Ur Barbiturates Screen Ur Phencyclidine Scrn U Amphetamine/Methamph U Benzodiazepines Scrn U Cocaine Metab Screen U Cannabinoids Screen Serum Alcohol Treponema pallidum IgG Blood Type Antibody Screen 05/13/17 05/13/17 05/13/17 12:52 14:38 Unknown WBC RBC Hgb Hct MCV MCH MCHC RDW Plt Count MPV Neut % (Auto) Lymph % (Auto) [place] % (Auto) Eos % (Auto) Baso % (Auto) Neut # (Auto) Lymph # (Auto) [place] # (Auto) Eos # (Auto) Baso # (Auto) Immature Gran % Nucleated RBC % Immature Gran # Nucleated RBCs # Immature Plt Fraction INR PT Patient/Control Mix ABG pH ABG pCO2 ABG pO2 ABG HCO3 ABG Total CO2 ABG O2 Saturation ABG Base Excess FiO2 Sodium 123 L Potassium Chloride Carbon Dioxide Anion Gap BUN Creatinine GFR Calculation BUN/Creatinine Ratio Glucose Calculated Osmolality Lactic Acid Calcium Magnesium 2.1 Total Bilirubin AST ALT Alkaline Phosphatase Ammonia Troponin I Total Protein Albumin Globulin Albumin/Globulin Ratio Prolactin 28.3 Random Cortisol Urine Color Urine Appearance Urine pH Ur Specific [place] Urine Protein Urine Glucose (UA) Urine Ketones Urine Blood Urine Nitrate Urine Bilirubin Urine Urobilinogen Urine Leukocytes Urine RBC Urine WBC Urine WBC Clumps Hyaline Casts Urine Mucus Ur Culture Indicated? Urine Osmolality Ur Random Creatinine Ur Random Sodium Urine Opiates Screen Ur Barbiturates Screen Ur Phencyclidine Scrn U Amphetamine/Methamph U Benzodiazepines Scrn U Cocaine Metab Screen U Cannabinoids Screen Serum Alcohol Treponema pallidum IgG Nonreactive Blood Type Antibody Screen 05/13/17 Unknown WBC RBC Hgb Hct MCV MCH MCHC RDW Plt Count MPV Neut % (Auto) Lymph % (Auto) [place] % (Auto) Eos % (Auto) Baso % (Auto) Neut # (Auto) Lymph # (Auto) [place] # (Auto) Eos # (Auto) Baso # (Auto) Immature Gran % Nucleated RBC % Immature Gran # Nucleated RBCs # Immature Plt Fraction INR PT Patient/Control Mix ABG pH ABG pCO2 ABG pO2 ABG HCO3 ABG Total CO2 ABG O2 Saturation ABG Base Excess FiO2 Sodium Potassium Chloride Carbon Dioxide Anion Gap BUN Creatinine GFR Calculation BUN/Creatinine Ratio Glucose Calculated Osmolality Lactic Acid Calcium Magnesium Total Bilirubin AST ALT Alkaline Phosphatase Ammonia Troponin I Total Protein Albumin Globulin Albumin/Globulin Ratio Prolactin Random Cortisol Urine Color Urine Appearance Urine pH Ur Specific [place] Urine Protein Urine Glucose (UA) Urine Ketones Urine Blood Urine Nitrate Urine Bilirubin Urine Urobilinogen Urine Leukocytes Urine RBC Urine WBC Urine WBC Clumps Hyaline Casts Urine Mucus Ur Culture Indicated? Urine Osmolality 425 Ur Random Creatinine Ur Random Sodium Urine Opiates Screen Ur Barbiturates Screen Ur Phencyclidine Scrn U Amphetamine/Methamph U Benzodiazepines Scrn U Cocaine Metab Screen U Cannabinoids Screen Serum Alcohol Treponema pallidum IgG Blood Type Antibody Screen - Diagnostic Findings Procedure: Chest x-ray: image reviewed by me, report reviewed by me (Scarring in lungs)
[2017-05-13] MEDS: ACYCLOVIR INJ 600 MG in SODIUM CHLORIDE 0.9% 100 ML IV SCH (16:55)
[2017-05-13 19:18] LABS: Calcium 8.1 MG/DL (8.5-10.1); Osmolality,Calculated 253.1 MOS/KG (273-304)
[2017-05-13 22:48] LABS: Calcium 8.1 MG/DL (8.5-10.1); Osmolality,Calculated 256.8 MOS/KG (273-304); Potassium 3.4 MMOL/L (3.5-5.1)
[2017-05-14] MEDS: ACYCLOVIR INJ 600 MG in SODIUM CHLORIDE 0.9% 100 ML IV SCH ×2 (00:06→10:23)
[2017-05-14 00:52] LABS: Basophils % 0.3 % (0.0-0.8); Eosinophils % 0.2 % (0.00-10.9); Hematocrit 26.5 VOL% (35.7-47.0); Hemoglobin 9.4 GM/DL (12.0-16.0); Immature Granulocytes % 0.8 %; Immature Granulocytes Absolute 0.05 #; Lymphocytes # 1.4 10*3/uL (1.4-4.0); Mean Corpuscular HGB Conc 35.5 GM/DL (32-36); Mean Corpuscular Hemoglobin 31 PG (27-34); Mean Corpuscular Volume 87.2 FL (87-102); Mean Platelet Volume 9.2 FL (9.6-12.0); Monocytes # 0.7 10*3/uL (0.11-0.8); Monocytes % 10.7 % (1.7-12.7); Neutrophils # 4.1 10*3/uL (1.4-7.4); Platelet Count 256 T/CUMM (130-400); Red Blood Count 3.04 MC/CUMM (3.8-5.5); Red Cell Distribution Width 13.7 % (9.3-17.3); White Blood Count 6.2 T/CUMM (4-12)
[2017-05-14 01:19] LABS: Calcium 7.5 MG/DL (8.5-10.1); Osmolality,Calculated 261.4 MOS/KG (273-304); Potassium 3.3 MMOL/L (3.5-5.1)
[2017-05-14] MEDS: SODIUM CHLORIDE 3% INJ 500 ML IV SCH (02:05)
[2017-05-14] MEDS: ENOXAPARIN 80 MG/0.8 ML SYRINGE SUBCUT SCH ×2 (03:23→14:17)
[2017-05-14] MEDS: PANTOPRAZOLE 40 MG VIAL IV SCH (03:23)
[2017-05-14] MEDS: POTASSIUM CHLORIDE RIDER 10 MEQ in PREMIX 1 EACH IV SCH (03:28)
[2017-05-14 05:21] LABS: Osmolality,Calculated 266.1 MOS/KG (273-304); Potassium 3.2 MMOL/L (3.5-5.1)
[2017-05-14] MEDS: LORazepam 2 MG/1 ML VIAL IV PRN ×3 (05:30→21:52)
[2017-05-14] MEDS: SODIUM CHLORIDE 0.9% 1,000 ML IV SCH ×2 (07:31→16:46)
[2017-05-14 08:25] LABS: INR 1.5; PT Patient Result 16.1 SECS
[2017-05-14] MEDS ORDERED: POTASSIUM CHLORIDE 20 MEQ TABLET PO ONE ×2 (09:30→15:20)
[2017-05-14] MEDS: DULoxetine 30 MG CAPSULE PO SCH ×2 (10:21→20:37)
[2017-05-14] MEDS: TOPIRAMATE 25 MG TABLET PO SCH ×2 (10:21→20:36)
[2017-05-14] MEDS: MEROPENEM 1,000 MG in SODIUM CHLORIDE 0.9% 100 ML IV SCH ×2 (10:23)
--- NOTE | 2017-05-14 11:39 | Infectious Disease Progress ---
Assessment and Plan (1) Confusion Status: Acute Assessment and plan: Was probably from hyponatremia. Patient has been she has had the same presentation before. If she had meningitis she would not have gotten better this quickly. She has not had fever or other constitutional symptoms. Denies any preceding headache or neck stiffness. Recommend agents: 1. I would cancel the lumbar puncture 2. Discontinue acyclovir I will sign off. Call again as needed. Current Visit: Yes (2) UTI (urinary tract infection) Status: Acute Assessment and plan: She had pyuria on admission but no irritative urinary symptoms. Repeat UA was negative within a day. Even the negative UA is positive and I think both samples were contaminated. Recommendations: Discontinue to meropenem Discussed with Dr. Ramsey Current Visit: Yes (3) Hyponatremia Status: Acute Current Visit: No (4) Mitral valve replaced Status: Chronic Current Visit: No Infectious Disease - PN: Subj Interval history: Patient doing much better, back to normal mental state. She tells me that she has had this problem in the past some time her sodium is low. Says that she was told by that she needs to drink large amounts of water, as much water she can. She has had prior to getting on well she did not have any preceding malaise, fever, or URI symptoms. She does have a chronic cough for a long time intensity cough medicine for it. It is nonproductive. No pleuritic chest pain. She denies irritative urinary symptoms and no recent diagnosis of urinary tract infection. Infectious Disease Exam (PN) - Constitutional Vitals: Temp Pulse Resp BP Pulse Ox 98.6 F 89 19 127/74 97 05/14/17 07:00 05/14/17 09:00 05/14/17 10:00 05/14/17 09:00 05/14/17 09:00 Exam: General appearance: no acute distress, looks completely nontoxic - Eye Eye exam: Present: EOMI. no icterus Pupils: Present: NATALIE - ENT ENT exam: no oral exudates - Respiratory Respiratory exam: vesicular BS, no crepitations or wheezes - Cardiovascular Cardiovascular exam: regular rate and rhythm, no murmurs - GI/Abdominal GI/Abdominal exam: normal bowel sounds, soft, non-tender, no organomegaly or mass - Extremities Exam Extremities exam: no edema - Skin Skin exam: no rash Results - Labs CBC & BMP: 05/14/17 00:32 05/14/17 07:21 Lab Results: I have reviewed the past 24 hour labs
--- NOTE | 2017-05-14 15:25 | Hospitalist Progress Note ---
Assessment and Plan (1) Sepsis Status: Acute Assessment and plan: no evidence of infection, Dr. Purdy has seen her and does not feels she has sepsis and has stopped all abx Current Visit: Yes (2) Delirium Status: Acute Assessment and plan: resolved Current Visit: Yes (3) Hypertension Status: Chronic Assessment and plan: restart coreg Current Visit: No (4) Seizure disorder Status: Chronic Assessment and plan: oral keppra Current Visit: No (5) Mitral valve replaced Status: Chronic Assessment and plan: cont lovenox restart coumadin Current Visit: No (6) Hyponatremia Status: Acute Assessment and plan: Discontinue 3% normal saline change to normal saline at 75 Current Visit: Yes (7) Hypomagnesemia Status: Acute Assessment and plan: Resolved Current Visit: Yes (8) UTI (urinary tract infection) Status: Acute Assessment and plan: Dr. Purdy does not believe she has a UTI. Current Visit: Yes (9) Hypokalemia Status: Acute Assessment and plan: Replacing and recheck in a.m. Current Visit: Yes (10) Opiate intoxication Status: Acute Assessment and plan: Hold all narcotics and sedating medicines at this time. Toradol as needed pain Current Visit: Yes Hospitalist: Subjective Interval history: Patient is been admitted several times for altered mental status due to her drug addiction. Patient self medicates. She lives with a roommate who is not responsible for taking care of her. Patient still claims she can live independently. She looks older than her stated age. Patient's fever and altered mental status has resolved. She is off the hypertonic saline. Most of her altered mental status is due to her drug addiction. Patient asked when she woke up today if I could restart her narcotics and I have denied that. Exam - Constitutional Vitals: Period Temp Pulse Resp BP Sys/Reyes Pulse Ox Last 24 Hr 97.9 F-98.9 F 64-98 15-27 116-191/55-109 95-99 Exam: Heart Rate-[tachy] Lungs-[CTAB] GI-[+bs soft, NT] Ext-[no edema] Neuro [Motor 5/5, alert and oriented times 3 psych normal mood and affect General [no acute distress] Results - Labs CBC & BMP: 05/14/17 00:32 05/14/17 07:21 Lab Results: I have reviewed the past 24 hour labs
[2017-05-14] MEDS: CARVEDILOL 12.5 MG TABLET PO SCH ×2 (16:23→20:37)
[2017-05-14] MEDS ORDERED: WARFARIN 5 MG TABLET PO SCH (18:00)
[2017-05-14] MEDS: WARFARIN 7.5 MG TABLET PO SCH (18:06)
[2017-05-14] MEDS: KETOROLAC 15 MG/1 ML VIAL IV PRN (19:58)
[2017-05-14] MEDS: levETIRAcetam 500 MG TABLET PO SCH (20:37)
[2017-05-14] MEDS ORDERED: CARVEDILOL 12.5 MG TABLET PO SCH (21:00)
[2017-05-15] MEDS: PANTOPRAZOLE 40 MG VIAL IV SCH (01:28)
[2017-05-15] MEDS: ENOXAPARIN 80 MG/0.8 ML SYRINGE SUBCUT SCH ×2 (01:30→12:57)
[2017-05-15] MEDS: KETOROLAC 15 MG/1 ML VIAL IV PRN ×3 (03:38→16:14)
[2017-05-15 06:30] LABS: Basophils # 0.1 10*3/uL (0.0-0.2); Basophils % 0.7 % (0.0-0.8); Eosinophils # 0.2 10*3/uL (0.0-0.87); Eosinophils % 2.7 % (0.00-10.9); Hematocrit 28.2 VOL% (35.7-47.0); Hemoglobin 9.7 GM/DL (12.0-16.0); Immature Granulocytes % 0.4 %; Immature Granulocytes Absolute 0.04 #; Lymphocytes % 11.5 % (21.3-54.2); Mean Corpuscular HGB Conc 34.4 GM/DL (32-36); Mean Corpuscular Hemoglobin 31 PG (27-34); Mean Corpuscular Volume 90.4 FL (87-102); Mean Platelet Volume 9.5 FL (9.6-12.0); Monocytes # 0.5 10*3/uL (0.11-0.8); Monocytes % 5.2 % (1.7-12.7); Neutrophils # 7.2 10*3/uL (1.4-7.4); Neutrophils % 79.5 % (38.7-73.9); Platelet Count 283 T/CUMM (130-400); Red Blood Count 3.12 MC/CUMM (3.8-5.5); Red Cell Distribution Width 14.1 % (9.3-17.3)
[2017-05-15 06:42] LABS: Calcium 8.3 MG/DL (8.5-10.1); Osmolality,Calculated 258.7 MOS/KG (273-304); Potassium 3.7 MMOL/L (3.5-5.1)
[2017-05-15] MEDS: SODIUM CHLORIDE 0.9% 1,000 ML IV SCH ×2 (08:22→20:15)
[2017-05-15] MEDS: levETIRAcetam 500 MG TABLET PO SCH ×2 (09:00→20:08)
[2017-05-15] MEDS: TOPIRAMATE 25 MG TABLET PO SCH ×2 (09:00→20:08)
[2017-05-15] MEDS: CARVEDILOL 12.5 MG TABLET PO SCH ×2 (09:00→20:08)
[2017-05-15] MEDS: DULoxetine 30 MG CAPSULE PO SCH ×2 (09:00→20:08)
[2017-05-15] MEDS: hydrALAZINE 20 MG/1 ML VIAL IV PRN (11:21)
--- NOTE | 2017-05-15 13:45 | Hospitalist Progress Note ---
Assessment and Plan (1) E-coli UTI Status: Acute Assessment and plan: Significant to the sitting beta-lactam allergy given the pleuritic ankle drug allergies I like to avoid any coincidences. Therefore use monobactam i.e. aztreonam 1 g every 8 hours. Check urinalysis with reflex culture in 3 days. Current Visit: Yes (2) Penicillin allergy Status: Acute Current Visit: Yes (3) Altered mental status Status: Resolved Assessment and plan: This likely secondary to UTI but the use of opioids has been a concern at least at the time of admission by my colleagues Current Visit: No Hospitalist: Subjective Interval history: Patient has been seen interviewed and examined and chart has been reviewed. She was admitted to the hospital with altered mental status also noted to be with opioid intoxication. The suspected the patient is overusing her prescription medications. However in the hospital she has isolated is calyceal coli from the urine this organism is sensitive only to IV antibiotics resistant to quinolones trimethoprim sulfamethoxazole. Is a thin chance that he may be susceptible to cefuroxime she has extensive medication allergies including penicillins. Choice antibiotics will have to be aztreonam 1 g every 8 hours for 3 days. Repeat urinalysis on Wednesday morning. Exam - Constitutional Vitals: Period Temp Pulse Resp BP Sys/Reyes Pulse Ox Last 24 Hr 97.1 F-98.4 F 66-89 16-33 156-181/82-97 95-98 General appearance: normal weight, other (Frail elderly lady) - Head Head exam: Present: normocephalic, atraumatic - Eye Eye exam: Present: EOMI Pupils: Present: NATALIE - Respiratory Respiratory exam: Present: clear to auscultation bilaterally - Cardiovascular Cardiovascular exam: Present: regular rate and rhythm - GI/Abdominal GI/Abdominal exam: Present: normal bowel sounds, soft - Extremities Exam Extremities exam: Present: full ROM - Neurological Exam Neurological exam: Present: alert, oriented X3, CN II-XII intact - Psychiatric Psychiatric exam: Present: normal affect, normal mood - Skin Skin exam: Present: normal color, warm, dry Results - Labs CBC & BMP: 05/15/17 05:36 05/15/17 05:36 Lab Results: I have reviewed the past 24 hour labs (E. coli in the urine negative blood,)
[2017-05-15] MEDS ORDERED: AZTREONAM 1,000 MG VIAL IM SCH (14:00)
[2017-05-15] MEDS ORDERED: AZTREONAM 1,000 MG VIAL IV SCH (14:16)
[2017-05-15] MEDS: AZTREONAM 1,000 MG in SODIUM CHLORIDE 0.9% 100 ML IV SCH ×2 (16:14→22:39)
[2017-05-15] MEDS: WARFARIN 7.5 MG TABLET PO SCH (18:04)
[2017-05-15] MEDS: LORazepam 2 MG/1 ML VIAL IV PRN (20:08)
[2017-05-16] MEDS: PANTOPRAZOLE 40 MG VIAL IV SCH (00:39)
[2017-05-16] MEDS: ENOXAPARIN 80 MG/0.8 ML SYRINGE SUBCUT SCH ×2 (00:40→14:33)
[2017-05-16] MEDS: SODIUM CHLORIDE 0.9% 1,000 ML IV SCH ×2 (00:52→10:56)
[2017-05-16] MEDS: hydrALAZINE 20 MG/1 ML VIAL IV PRN ×2 (03:56→20:33)
[2017-05-16] MEDS: KETOROLAC 15 MG/1 ML VIAL IV PRN ×3 (04:01→17:14)
[2017-05-16] MEDS: AZTREONAM 1,000 MG in SODIUM CHLORIDE 0.9% 100 ML IV SCH ×3 (06:00→22:49)
[2017-05-16 06:06] LABS: Eosinophils # 0.2 10*3/uL (0.0-0.87); Hematocrit 49.3 VOL% (35.7-47.0); Hemoglobin 16.6 GM/DL (12.0-16.0); Immature Granulocytes % 0.5 %; Immature Granulocytes Absolute 0.02 #; Lymphocytes # 0.6 10*3/uL (1.4-4.0); Lymphocytes % 13.6 % (21.3-54.2); Mean Corpuscular HGB Conc 33.7 GM/DL (32-36); Mean Corpuscular Hemoglobin 31 PG (27-34); Mean Corpuscular Volume 92.1 FL (87-102); Mean Platelet Volume 9.6 FL (9.6-12.0); Monocytes # 0.2 10*3/uL (0.11-0.8); Neutrophils # 3.1 10*3/uL (1.4-7.4); Neutrophils % 74.9 % (38.7-73.9); Platelet Count 148 T/CUMM (130-400); Red Blood Count 5.35 MC/CUMM (3.8-5.5); Red Cell Distribution Width 14.5 % (9.3-17.3); White Blood Count 4.2 T/CUMM (4-12)
[2017-05-16 08:07] LABS: Basophils # 0.1 10*3/uL (0.0-0.2); Basophils % 1.1 % (0.0-0.8); Eosinophils # 0.3 10*3/uL (0.0-0.87); Eosinophils % 3.7 % (0.00-10.9); Hematocrit 35.6 VOL% (35.7-47.0); Hemoglobin 12.4 GM/DL (12.0-16.0); Immature Granulocytes % 0.5 %; Immature Granulocytes Absolute 0.05 #; Lymphocytes # 1.1 10*3/uL (1.4-4.0); Lymphocytes % 12.3 % (21.3-54.2); Mean Corpuscular HGB Conc 34.8 GM/DL (32-36); Mean Corpuscular Hemoglobin 31 PG (27-34); Mean Corpuscular Volume 89.9 FL (87-102); Mean Platelet Volume 9.2 FL (9.6-12.0); Monocytes # 0.5 10*3/uL (0.11-0.8); Monocytes % 5.4 % (1.7-12.7); Platelet Count 463 T/CUMM (130-400); Red Blood Count 3.96 MC/CUMM (3.8-5.5); Red Cell Distribution Width 14.2 % (9.3-17.3); White Blood Count 9.1 T/CUMM (4-12)
[2017-05-16] MEDS: levETIRAcetam 500 MG TABLET PO SCH ×2 (09:18→20:39)
[2017-05-16] MEDS: TOPIRAMATE 25 MG TABLET PO SCH ×2 (09:18→20:39)
[2017-05-16] MEDS: CARVEDILOL 12.5 MG TABLET PO SCH ×2 (09:18→20:39)
[2017-05-16] MEDS: DULoxetine 30 MG CAPSULE PO SCH ×2 (09:18→20:39)
--- NOTE | 2017-05-16 11:26 | Hospitalist Progress Note ---
Assessment and Plan (1) E-coli UTI Status: Acute Assessment and plan: Discontinue aztreonam this afternoon start doxycycline 100 mg p.o. twice a day. Avoid over exposure to the sun. Reassess the patient in the morning for possible discharge. Current Visit: Yes (2) Penicillin allergy Status: Acute Current Visit: Yes (3) Altered mental status Status: Resolved Assessment and plan: This likely secondary to UTI but the use of opioids has been a concern at least at the time of admission by my colleagues. It appears that have multiple prescriptions discovered at home by the family according to my discussion with the headedness this morning. Has to be a home health when this patient goes home so that there is monitoring of her medications. Current Visit: No Hospitalist: Subjective Interval history: Patient has been seen interviewed and examined and chart has been reviewed. Is the second time seeing this patient is doing so well she is alert and eating. She has a urinary tract infection came out to be urinary tract infection with E. coli that is resistant to trimethoprim sulfa levofloxacin but sensitive to tetracyclines. She also has a staph folliculitis on the second sputum urine that was obtained after she had come to the hospital ready this with a [place] catheter obtain the urine. He did grow Staphylococcus oricularis (chances of this is a colonizer contaminant). It is also sensitive to tetracycline. Patient has no IV access is but clinically she is doing so well that she can be put on an oral antibiotic observed here today and possibly discharge her home tomorrow. 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 Exam - Constitutional Vitals: Period Temp Pulse Resp BP Sys/Reyes Pulse Ox Last 24 Hr 96.8 F-98.4 F 66-93 14-18 130-208/66-101 96-100 General appearance: normal weight - Head Head exam: Present: normocephalic, atraumatic - Eye Eye exam: Present: EOMI Pupils: Present: NATALIE - Neck Neck exam: Present: normal inspection, other (IV in the external jugular on the left side) - Respiratory Respiratory exam: Present: clear to auscultation bilaterally - Cardiovascular Cardiovascular exam: Present: regular rate and rhythm, other (Heart murmur around the upper left sternal border with S2 splitting on the inspiration) - Extremities Exam Extremities exam: Present: full ROM - Neurological Exam Neurological exam: Present: alert, oriented X3, CN II-XII intact - Psychiatric Psychiatric exam: Present: normal affect, normal mood - Skin Skin exam: Present: normal color, warm, dry Results - Labs CBC & BMP: 05/16/17 07:54 05/15/17 05:36 Lab Results: I have reviewed the past 24 hour labs (Noted exertional coli and the Staphylococcus auricularis as noted above; in the urine)
[2017-05-16 19:19] LABS: INR 2.4
[2017-05-16 19:20] LABS: PT Patient Result 26.8 SECS
[2017-05-16] MEDS: LORazepam 2 MG/1 ML VIAL IV PRN (20:36)
[2017-05-16] MEDS: WARFARIN 7.5 MG TABLET PO SCH (20:40)
[2017-05-17] MEDS: PANTOPRAZOLE 40 MG VIAL IV SCH (00:29)
[2017-05-17] MEDS: SODIUM CHLORIDE 0.9% 1,000 ML IV SCH ×2 (00:32→14:33)
[2017-05-17] MEDS: ENOXAPARIN 80 MG/0.8 ML SYRINGE SUBCUT SCH ×2 (00:34→14:32)
[2017-05-17] MEDS: KETOROLAC 15 MG/1 ML VIAL IV PRN ×2 (04:42→10:14)
[2017-05-17] MEDS: AZTREONAM 1,000 MG in SODIUM CHLORIDE 0.9% 100 ML IV SCH (05:59)
--- NOTE | 2017-05-17 09:47 | Physician Query Form ---
CLICK EDIT DOCUMENT TO SELECT QUERY ANSWER --> OK --> SIGN Dinorah Simms RN Clinical Tester [employer] W) [phone] (f) [phone] [email or web address] PROVIDERS: Make your selection(s) from the choices in EACH section by typing an "x" and enter comments in the comment section. Please use your independent medical judgment in providing your response. This request does not imply that any particular answer is desired or expected. CLINICAL INDICATORS: (Providers should not edit this section) There is conflicting documentation in the record of UTI. Based on documentation of " Even the negative UA is positive and I think both samples were contaminated. Dr. Purdy does not believe she has a UTI" and "E-coli UTI". Patient treated with IV Aztreonam. Please clarify the diagnosis of UTI. Diagnosis: UTI Please clarify the following: ( ) The above diagnosis was monitored, evaluated, and/or treated and is a confirmed diagnosis ( ) The above diagnosis was ruled out ( ) Other, please specify: (X ) Clinically unable to determine COMMENTS: PLEASE ALSO DOCUMENT RESPONSE IN PROGRESS NOTES AND/OR DISCHARGE SUMMARY Use of terms such as suspected, likely, or probable (associated with a specific diagnosis that is being evaluated, monitored, or treated as if it exists) are acceptable and can be restated in the discharge summary if not ruled out. MTDD
--- NOTE | 2017-05-17 09:55 | Physician Query Form ---
CLICK EDIT DOCUMENT TO SELECT QUERY ANSWER --> OK --> SIGN Dinorah Simms RN Clinical Operations Accountant W) [phone] (f) [phone] [email or web address] PROVIDERS: Make your selection(s) from the choices in EACH section by typing an "x" and enter comments in the comment section. Please use your independent medical judgment in providing your response. This request does not imply that any particular answer is desired or expected. CLINICAL INDICATORS: (Providers should not edit this section) Based on documentation of "acute confusion, acute delirium, and AMS. Delirium secondary to either UTI or Haldol. Acute confusion was probably from hyponatremia. Patient doing much better, back to normal mental state". ACUITY: ( ) Acute ( ) Acute on Chronic ( ) Chronic ( X) Clinically unable to determine NATURE: ( X) Delirium due to general medical condition ( ) Encephalopathy ( ) Dementia ( ) Unconscious ( ) Transient level of awareness ( ) Comatose ( ) Locked-in State ( ) Persistent Vegetative State ( ) Other, please specify: ( ) Clinically unable to determine Please indicate if there is an infection, sepsis, dehydration or specific organ failure that is causing the dementia. Be specific with clarifying the relationship between that process and the mental status change. COMMENTS: PLEASE ALSO DOCUMENT RESPONSE IN PROGRESS NOTES AND/OR DISCHARGE SUMMARY Use of terms such as suspected, likely, or probable (associated with a specific diagnosis that is being evaluated, monitored, or treated as if it exists) are acceptable and can be restated in the discharge summary if not ruled out. MTDD
[2017-05-17] MEDS: TOPIRAMATE 25 MG TABLET PO SCH (10:14)
[2017-05-17] MEDS: levETIRAcetam 500 MG TABLET PO SCH (10:14)
[2017-05-17] MEDS: CARVEDILOL 12.5 MG TABLET PO SCH (10:14)
[2017-05-17] MEDS: DULoxetine 30 MG CAPSULE PO SCH (10:14)
--- NOTE | 2017-05-17 11:35 | Discharge Summary ---
Hospital Course - Hospital Course Hospital Course: This is a chronically ill 67-year-old female that presented to the ED at [facility] from the [facility] in [place], [place] on the night of May 12, 2017 for the further evaluation of altered mental status, urinary tract infection, and hyponatremia.The patient has a medical history significant for congestive heart failure, coronary artery disease, hypertension, myocardial infarction, anxiety disorder, depression, seizures, transient ischemic attack, cataracts, fibromyalgia, chronic obstructive pulmonary disease, gastroesophageal reflux disease, hemorrhoids, chronic neck and back pain, T7 through T12 compression fractures. The patient has a surgical history significant for cardiac catheterization, mitral valve replacement, coronary artery bypass graft, tonsillectomy, adenoidectomy, esophagogastroduodenoscopy, and left total hip replacement. The patient was found to be experiencing profound weakness at home and was transported to the [facility] for further evaluation. At the time of presentation at the [facility], the patient was noted to be very agitated and was thought to be experiencing medication mismanagement. The patient was then given Narcan, Haldol, and Ativan in an effort to decrease her agitation. 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 The patient was subsequently transferred to [facility] for continuation of care. The patient was assessed at the time of ED presentation Chest x-ray significant for chronic lung and cardiac surgery changes however, no acute process or significant change was noted. Labs were obtained which were significant for white blood cell count at 12.9, hemoglobin 11.8, hematocrit 31.8 , platelet count 348, sodium 119, potassium 3.5, chloride 84, carbon dioxide 85 , BUN 5, creatinine 0.50, glucose 133, calculated osmolality 238.3, magnesium 1.5, alkaline phosphatase 133, and troponin 0 0.089. Urinalysis was significant for small amount of urine blood, urine urobilinogen greater than 2.0 , urine leukocytes large, urine RBCs 28, urine WBCs 576, urine WBC clumps many, hyaline casts 18, and urine mucus occasional. Urine toxicology reported positive findings for both opiates and barbiturates. Blood gas was significant for urine pH 7.487, PCO2 22.3, PO2 98.9, HCO3 16.5. The patient was subsequently admitted to the hospitalist service for continuation of care. Due to the severity of the patient's presenting symptoms, the patient was placed in the critical care setting for close observation. Empiric antibiotic coverage, gentle rehydration, and seizure prophylaxis were initiated. Neurology and infectious disease consultations were requested. The patient was seen and evaluated by infectious disease and recommendations were given. The patient's sodium level was gradually corrected and her mental status greatly improved. The request for the nephrology consultation was canceled. The patient was subsequently transferred to the general medical surgical floor on May 14, 2017. All potentially sedative agents were placed on hold at the time of ED presentation. Culture sensitivity from urinalysis obtained at the time of admission were significant for the presence of a E. coli and Staphylococcus auricularis. The patient's antibiotic coverage was adjusted due to the identification of the infective agents. The patient's condition gradually improved. The patient's condition is stable. She has not experienced any significant overnight events. Today, we feel that she is indeed appropriate for discharge to follow-up with her primary care physician as directed. The patient will be discharged with instructions to continue doxycycline 100 mg by mouth twice daily. In addition, the patient has been instructed to avoid overexposure to sun while taking doxycycline. Diagnosis - Discharge Diagnosis (1) E-coli UTI Status: Acute (2) Penicillin allergy Status: Acute (3) Altered mental status Status: Resolved Discharge Plan - Discharge Data Condition at Discharge: Stable Discharge Diet: heart healthy Activity: increase activity as tolerated Hygiene: may shower Weight Bearing at Discharge: weight bear as tolerated Driving: not until seen by doctor Contact your physician if you experience:: fever over 101, Nausea/Vomiting, Shortness of breath, pain uncontrolled by pain medications - Discharge Medications Continue levETIRAcetam [Levetiracetam] 500 mg PO BID #60 tablet Triamterene/Hydrochlorothiazid [Triamterene-Hctz 37.5-25 mg Cp] 1 each PO DAILY Zolpidem Tartrate 10 mg PO BEDTIME PRN PRN Reason: Insomnia Hydrocodone/Acetaminophen [[place] 10-325 Tablet] 1 each PO TID PRN PRN Reason: Pain Carvedilol [Coreg] 12.5 mg PO BID Topiramate 25 mg PO BID DULoxetine [Cymbalta] 30 mg PO BID Warfarin [Coumadin] 5 mg PO DAILY@1800 #60 tablet fentaNYL [Fentanyl 12.5 mcg/hr Patch] 12.5 mg TOP Q3DAY clonazePAM [Clonazepam] 0.5 mg PO BID PRN PRN Reason: Anxiety - Follow Up or Referral - Forms/Instructions Exam - Constitutional Vitals: Period Temp Pulse Resp BP Sys/Reyes Pulse Ox Last 24 Hr 97.0 F-98.0 F 73-96 16-18 120-196/72-100 97-98 General appearance: normal weight, no acute distress - Head Head exam: Present: normocephalic, atraumatic - Eye Eye exam: Present: EOMI, nystagmus - ENT ENT exam: Present: normal exam, other - Neck Neck exam: Present: normal inspection, other (Discontinued IV and that was exiting the external jugular on the left side) - Respiratory Respiratory exam: Present: clear to auscultation bilaterally - Cardiovascular Cardiovascular exam: Present: regular rate and rhythm, other (Soft murmur to the aortic and mitral site history of heart surgery patient has a pacemaker on the left side) - Extremities Exam Extremities exam: Present: full ROM, other (Mild/moderate deconditioning) - Neurological Exam Neurological exam: Present: alert, oriented X3, CN II-XII intact - Psychiatric Psychiatric exam: Present: normal affect, normal mood - Skin Skin exam: Present: normal color, warm, dry Discharge Results Procedures and tests throughout hospitalization: Pending Orders 05/12/17 Blood Culture Stat 05/13/17 08:50 Cytology Request Stat Labs on day of discharge: Labs from last 24 hours 05/16/17 18:37 INR 2.4 PT Patient/Control Mix 26.8 D Preliminary micro results at discharge 05/13/17 07:07 Blood Culture - Preliminary Blood No growth at 3 days 05/13/17 06:51 Blood Culture - Preliminary Blood No growth at 3 days DS: Provider Date of admission: 05/13/17 00:59 Primary care physician: . No PCP Attending physician on admission: Noé Sofia MD Consults: 05/13/17 08:47 Consult to Physician [CONS] Routine Comment: fever, AMS, needs tap Consulting Provider: Ida Castillo 05/14/17 15:30 Consult to Occupational Therapy [CONS] Routine Reason for Occupational Therapy: Evaluate and Treat Consult to Physical Therapy [CONS] Routine Reason for Physical Therapy: Evaluate and Treat Discharging clinician: Arash Alamo MD
--- NOTE | 2017-05-17 11:50 | Discharge Summary ---
Hospital Course - Hospital Course Hospital Course: This is a chronically ill 67-year-old female that presented to the ED at [facility] from the [facility] in [place], [place] on the night of May 12, 2017 for the further evaluation of altered mental status, urinary tract infection, and hyponatremia.The patient has a medical history significant for congestive heart failure, coronary artery disease, hypertension, myocardial infarction, anxiety disorder, depression, seizures, transient ischemic attack, cataracts, fibromyalgia, chronic obstructive pulmonary disease, gastroesophageal reflux disease, hemorrhoids, chronic neck and back pain, T7 through T12 compression fractures. The patient has a surgical history significant for cardiac catheterization, mitral valve replacement, coronary artery bypass graft, tonsillectomy, adenoidectomy, esophagogastroduodenoscopy, and left total hip replacement. The patient was found to be experiencing profound weakness at home and was transported to the [facility] for further evaluation. At the time of presentation at the [facility], the patient was noted to be very agitated and was thought to be experiencing medication mismanagement. The patient was then given Narcan, Haldol, and Ativan in an effort to decrease her agitation. 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 The patient was subsequently transferred to [facility] for continuation of care. The patient was assessed at the time of ED presentation Chest x-ray significant for chronic lung and cardiac surgery changes however, no acute process or significant change was noted. Labs were obtained which were significant for white blood cell count at 12.9, hemoglobin 11.8, hematocrit 31.8 , platelet count 348, sodium 119, potassium 3.5, chloride 84, carbon dioxide 85 , BUN 5, creatinine 0.50, glucose 133, calculated osmolality 238.3, magnesium 1.5, alkaline phosphatase 133, and troponin 0 0.089. Urinalysis was significant for small amount of urine blood, urine urobilinogen greater than 2.0 , urine leukocytes large, urine RBCs 28, urine WBCs 576, urine WBC clumps many, hyaline casts 18, and urine mucus occasional. Urine toxicology reported positive findings for both opiates and barbiturates. Blood gas was significant for urine pH 7.487, PCO2 22.3, PO2 98.9, HCO3 16.5. The patient was subsequently admitted to the hospitalist service for continuation of care. Due to the severity of the patient's presenting symptoms, the patient was placed in the critical care setting for close observation. Empiric antibiotic coverage, gentle rehydration, and seizure prophylaxis were initiated. Neurology and infectious disease consultations were requested. The patient was seen and evaluated by infectious disease and recommendations were given. The patient's sodium level was gradually corrected and her mental status greatly improved. The request for the nephrology consultation was canceled. The patient was subsequently transferred to the general medical surgical floor on May 14, 2017. All potentially sedative agents were placed on hold at the time of ED presentation. Culture sensitivity from urinalysis obtained at the time of admission were significant for the presence of a E. coli and Staphylococcus auricularis. The patient's antibiotic coverage was adjusted due to the identification of the infective agents. The patient's condition gradually improved. The patient's condition is stable. She has not experienced any significant overnight events. Today, we feel that she is indeed appropriate for discharge to follow-up with her primary care physician as directed. The patient will be discharged with instructions to continue doxycycline 100 mg by mouth twice daily. In addition, the patient has been instructed to avoid overexposure to sun while taking doxycycline. Discharge Plan - Discharge Medications Continue levETIRAcetam [Levetiracetam] 500 mg PO BID #60 tablet Triamterene/Hydrochlorothiazid [Triamterene-Hctz 37.5-25 mg Cp] 1 each PO DAILY Zolpidem Tartrate 10 mg PO BEDTIME PRN PRN Reason: Insomnia Hydrocodone/Acetaminophen [[place] 10-325 Tablet] 1 each PO TID PRN PRN Reason: Pain Carvedilol [Coreg] 12.5 mg PO BID Topiramate 25 mg PO BID DULoxetine [Cymbalta] 30 mg PO BID Warfarin [Coumadin] 5 mg PO DAILY@1800 #60 tablet fentaNYL [Fentanyl 12.5 mcg/hr Patch] 12.5 mg TOP Q3DAY clonazePAM [Clonazepam] 0.5 mg PO BID PRN PRN Reason: Anxiety - Follow Up or Referral - Forms/Instructions Exam - Constitutional Vitals: Period Temp Pulse Resp BP Sys/Reyes Pulse Ox Last 24 Hr 97.0 F-98.0 F 73-96 16-18 120-196/72-100 97-98 Discharge Results Procedures and tests throughout hospitalization: Pending Orders 05/12/17 Blood Culture Stat 05/13/17 08:50 Cytology Request Stat Labs on day of discharge: Labs from last 24 hours 05/16/17 18:37 INR 2.4 PT Patient/Control Mix 26.8 D Preliminary micro results at discharge 05/13/17 07:07 Blood Culture - Preliminary Blood No growth at 3 days 05/13/17 06:51 Blood Culture - Preliminary Blood No growth at 3 days DS: Provider Date of admission: 05/13/17 00:59 Primary care physician: . No PCP Attending physician on admission: Noé Sofia MD Consults: 05/13/17 08:47 Consult to Physician [CONS] Routine Comment: fever, AMS, needs tap Consulting Provider: Ida Castillo 05/14/17 15:30 Consult to Occupational Therapy [CONS] Routine Reason for Occupational Therapy: Evaluate and Treat Consult to Physical Therapy [CONS] Routine Reason for Physical Therapy: Evaluate and Treat Discharging clinician: Naif Argueta, CREELER
[2017-05-17 13:00] VITALS: BP 155/87
[2017-05-17] MEDS ORDERED: AZTREONAM 1,000 MG in SODIUM CHLORIDE 0.9% 50 ML IV SCH (15:00)
== END 2017-05-17 16:35 | disposition home or self-care (01) | DRG 690 ==
LOC: EDBD → EDUNIT# → N.ED 22:03 → SUATTDRO 05-13 00:59 → N.EDINP 05-13 00:59 → N.CC 05-13 01:21 → N.5E 05-14 16:56
PROVIDERS: ADMIT Internal Medicine; ATTEND Internal Medicine Infectious Disease

== ENCOUNTER 2018-10-19 12:43 | Observation (INO) ==
[2018-10-19] MEDS ORDERED: NITROGLYCERIN 2% OINT 1 INCH/GM PACK TOP STA (13:07)
[2018-10-19] MEDS ORDERED: ONDANSETRON 4 MG/2 ML VIAL IV STA (13:07)
[2018-10-19] MEDS ORDERED: MORPHINE 4 MG/1 ML VIAL IV STA (13:07)
[2018-10-19 13:38] LABS: Basophils % 0.5 % (0.0-0.8); Eosinophils # 0.1 10*3/uL (0.0-0.87); Eosinophils % 1.6 % (0.00-10.9); Hemoglobin 11.3 GM/DL (12.0-16.0); Immature Granulocytes % 0.3 %; Immature Granulocytes Absolute 0.02 #; Lymphocytes % 27.1 % (21.3-54.2); Mean Corpuscular HGB Conc 32.3 GM/DL (32-36); Mean Corpuscular Hemoglobin 29 PG (27-34); Mean Corpuscular Volume 91.1 FL (87-102); Mean Platelet Volume 9.5 FL (9.6-12.0); Monocytes # 0.4 10*3/uL (0.11-0.8); Monocytes % 5.6 % (1.7-12.7); Neutrophils # 4.9 10*3/uL (1.4-7.4); Neutrophils % 64.9 % (38.7-73.9); Platelet Count 268 T/CUMM (130-400); Red Blood Count 3.84 MC/CUMM (3.8-5.5); Red Cell Distribution Width 13.8 % (9.3-17.3); White Blood Count 7.5 T/CUMM (4-12)
[2018-10-19 13:49] LABS: INR 1.8; PT Patient Result 19.4 SECS
[2018-10-19 14:00] LABS: Partial Thromboplastin Time 45.9 SECS (0-40)
[2018-10-19 14:01] LABS: Alanine Aminotransferase 19 U/L (13-56); Albumin 3.7 G/DL (3.4-5.0); Alkaline Phosphatase 88 U/L (45-117); Aspartate Amino Transferase 15 U/L (0-37); Bilirubin,Total < 0.39 MG/DL (0.2-1.0); Blood Urea Nitrogen 8 MG/DL (7-18); Calcium 8.9 MG/DL (8.5-10.1); Glucose 89 MG/DL (74-106); Osmolality,Calculated 262.4 MOS/KG (273-304); Potassium 3.5 MMOL/L (3.5-5.1); Sodium 133 MMOL/L (136-145); Total Protein 7.9 G/DL (6.4-8.3)
[2018-10-19] MEDS ORDERED: MAGNESIUM SULF RIDER 2 GM in PREMIX 1 EACH IV PRN ×2 (14:42→16:11)
[2018-10-19] MEDS ORDERED: MAGNESIUM SULF RIDER 4 GM in PREMIX 1 EACH IV PRN (14:42)
[2018-10-19] MEDS ORDERED: diphenhydrAMINE CAP 25 MG CAPSULE PO PRN (16:06)
[2018-10-19] MEDS ORDERED: POTASSIUM CHLORIDE RIDER 10 MEQ in PREMIX 1 EACH IV PRN (16:11)
[2018-10-19] MEDS: SODIUM CHLORIDE 0.45% 1,000 ML IV SCH (16:32)
[2018-10-19 16:43] LABS: Apearance,Urine CLEAR (Clear); Bilirubin,Urine Negative (Negative); Blood, Urine Negative (Negative); Glucose,Urine (UA) Negative (Negative); Ketones,Urine Negative (Negative); Nitrite,Urine Negative (Negative); Protein,Urine Negative; Squamous Epithelial Cell,Urine Occasional /HPF (0-10); Urine Color Yellow (Yellow); Urine Specific Gravity 1.004 (1.001-1.035); Urine Urobilinogen < 2.0 EU/DL (0.2-1.0); WBC,Urine 2 /HPF (0-6)
[2018-10-19] MEDS: ROSUVASTATIN 20 MG TABLET PO SCH (20:24)
[2018-10-19] MEDS: DULoxetine 30 MG CAPSULE PO SCH (20:24)
[2018-10-19] MEDS: ZALEPLON 5 MG CAPSULE PO PRN (20:24)
[2018-10-19] MEDS: TOPIRAMATE 25 MG TABLET PO SCH (20:26)
[2018-10-19] MEDS: levETIRAcetam 500 MG TABLET PO SCH (20:26)
[2018-10-19] MEDS: CARVEDILOL 12.5 MG TABLET PO SCH (20:27)
[2018-10-19] MEDS: clonazePAM 0.5 MG TABLET PO SCH (20:27)
[2018-10-19] MEDS ORDERED: ASPIRIN EC 81 MG TABLET PO ONE (21:00)
[2018-10-20 04:46] LABS: Basophils # 0.1 10*3/uL (0.0-0.2); Eosinophils # 0.2 10*3/uL (0.0-0.87); Eosinophils % 3.2 % (0.00-10.9); Hematocrit 30.8 VOL% (35.7-47.0); Hemoglobin 9.7 GM/DL (12.0-16.0); Immature Granulocytes % 0.2 %; Immature Granulocytes Absolute 0.01 #; Lymphocytes # 1.9 10*3/uL (1.4-4.0); Lymphocytes % 38.5 % (21.3-54.2); Mean Corpuscular HGB Conc 31.5 GM/DL (32-36); Mean Corpuscular Hemoglobin 29 PG (27-34); Mean Corpuscular Volume 93.3 FL (87-102); Monocytes # 0.4 10*3/uL (0.11-0.8); Monocytes % 8.1 % (1.7-12.7); Neutrophils # 2.4 10*3/uL (1.4-7.4); Platelet Count 241 T/CUMM (130-400)
[2018-10-20 04:53] LABS: INR 1.4; PT Patient Result 15.1 SECS
[2018-10-20 04:54] LABS: INR 1.4; PT Patient Result 15.3 SECS
[2018-10-20 04:57] LABS: Osmolality,Calculated 272.8 MOS/KG (273-304); Potassium 3.4 MMOL/L (3.5-5.1)
[2018-10-20 05:00] LABS: Risk Ratio 6.1; VLDL CHOLESTEROL 82.4 MG/DL
[2018-10-20] MEDS ORDERED: diphenhydrAMINE CAP 25 MG CAPSULE PO ONE (06:30)
[2018-10-20] MEDS ORDERED: DIAZEPAM 5 MG TABLET PO ONE (06:30)
[2018-10-20] MEDS ORDERED: LIDOCAINE 1% 20 ML VIAL ONE (06:47)
[2018-10-20] MEDS ORDERED: MIDAZOLAM 2 MG/2 ML VIAL ONE ×2 (07:12→08:03)
[2018-10-20] MEDS ORDERED: ASPIRIN 325 MG TABLET ONE (07:12)
[2018-10-20] MEDS ORDERED: fentaNYL 100 MCG/2 ML VIAL ONE (07:12)
[2018-10-20] MEDS ORDERED: diphenhydrAMINE 50 MG/1 ML VIAL ONE (07:22)
[2018-10-20] MEDS ORDERED: TIROFIBAN 0 MCG/0 ML PREMIX IV ONE (07:47)
[2018-10-20] MEDS ORDERED: BIVALIRUDIN 250 MG VIAL IV ONE (07:48)
[2018-10-20] MEDS ORDERED: HEPARIN/NACL 0.9% 2 UNITS/ML 500 ML IV ONE (07:57)
[2018-10-20] MEDS ORDERED: NITROGLYCERIN DRIP 50 MG/250 ML BOTTLE IV ONE (08:46)
[2018-10-20] MEDS ORDERED: TICAGRELOR 90 MG TABLET ONE (09:17)
[2018-10-20] MEDS ORDERED: NITROGLYCERIN SL 0.4 MG TABLET SL PRN (09:26)
[2018-10-20] MEDS: amLODIPine 10 MG TABLET PO SCH (10:42)
[2018-10-20] MEDS: DULoxetine 30 MG CAPSULE PO SCH ×2 (10:42→21:34)
[2018-10-20] MEDS: clonazePAM 0.5 MG TABLET PO SCH ×2 (10:42→21:34)
[2018-10-20] MEDS: levETIRAcetam 500 MG TABLET PO SCH ×2 (10:42→21:34)
[2018-10-20] MEDS: TOPIRAMATE 25 MG TABLET PO SCH ×2 (10:43→21:34)
[2018-10-20] MEDS: PANTOPRAZOLE 40 MG TABLET PO SCH (10:43)
[2018-10-20] MEDS: ISOSORBIDE MONONITRATE 30 MG TABLET PO SCH (10:43)
[2018-10-20] MEDS: CARVEDILOL 12.5 MG TABLET PO SCH ×2 (10:43→21:35)
[2018-10-20] MEDS: GABAPENTIN 300 MG CAPSULE PO SCH (10:43)
[2018-10-20] MEDS: SODIUM CHLORIDE 0.45% 1,000 ML IV SCH (12:12)
[2018-10-20] MEDS: ZALEPLON 5 MG CAPSULE PO PRN (21:34)
[2018-10-20] MEDS: TICAGRELOR 90 MG TABLET PO SCH (21:34)
[2018-10-20] MEDS: ROSUVASTATIN 20 MG TABLET PO SCH (21:34)
[2018-10-21] MEDS: SODIUM CHLORIDE 0.45% 1,000 ML IV SCH (01:52)
[2018-10-21 05:26] LABS: Basophils % 0.7 % (0.0-0.8); Eosinophils # 0.2 10*3/uL (0.0-0.87); Eosinophils % 3.4 % (0.00-10.9); Hemoglobin 8.9 GM/DL (12.0-16.0); Immature Granulocytes % 0.2 %; Immature Granulocytes Absolute 0.01 #; Lymphocytes # 1.8 10*3/uL (1.4-4.0); Lymphocytes % 29.7 % (21.3-54.2); Mean Corpuscular HGB Conc 31.8 GM/DL (32-36); Mean Corpuscular Hemoglobin 29 PG (27-34); Mean Corpuscular Volume 92.4 FL (87-102); Mean Platelet Volume 9.8 FL (9.6-12.0); Monocytes # 0.5 10*3/uL (0.11-0.8); Monocytes % 8.2 % (1.7-12.7); Neutrophils # 3.5 10*3/uL (1.4-7.4); Neutrophils % 57.8 % (38.7-73.9); Platelet Count 206 T/CUMM (130-400); Red Blood Count 3.03 MC/CUMM (3.8-5.5); Red Cell Distribution Width 13.8 % (9.3-17.3)
[2018-10-21 05:31] LABS: INR 1.1; PT Patient Result 12.2 SECS
[2018-10-21 05:40] LABS: Calcium 8.1 MG/DL (8.5-10.1); Calcium 8.2 MG/DL (8.5-10.1); Osmolality,Calculated 274.8 MOS/KG (273-304); Potassium 3.9 MMOL/L (3.5-5.1)
[2018-10-21] MEDS: ASPIRIN EC 81 MG TABLET PO SCH (10:08)
[2018-10-21] MEDS: TICAGRELOR 90 MG TABLET PO SCH ×2 (10:08→22:17)
[2018-10-21] MEDS: ISOSORBIDE MONONITRATE 30 MG TABLET PO SCH (10:09)
[2018-10-21] MEDS: CARVEDILOL 12.5 MG TABLET PO SCH ×2 (10:09→22:18)
[2018-10-21] MEDS: levETIRAcetam 500 MG TABLET PO SCH ×2 (10:09→22:17)
[2018-10-21] MEDS: DULoxetine 30 MG CAPSULE PO SCH ×2 (10:09→22:17)
[2018-10-21] MEDS: clonazePAM 0.5 MG TABLET PO SCH ×2 (10:09→22:17)
[2018-10-21] MEDS: GABAPENTIN 300 MG CAPSULE PO SCH (10:10)
[2018-10-21] MEDS: amLODIPine 10 MG TABLET PO SCH (10:11)
[2018-10-21] MEDS: PANTOPRAZOLE 40 MG TABLET PO SCH (10:11)
[2018-10-21] MEDS: TOPIRAMATE 25 MG TABLET PO SCH ×2 (10:11→22:18)
[2018-10-21] MEDS: ZALEPLON 5 MG CAPSULE PO PRN (22:17)
[2018-10-21] MEDS: ROSUVASTATIN 20 MG TABLET PO SCH (22:18)
[2018-10-22 05:30] LABS: Basophils % 0.5 % (0.0-0.8); Eosinophils # 0.2 10*3/uL (0.0-0.87); Eosinophils % 3.4 % (0.00-10.9); Hematocrit 31.1 VOL% (35.7-47.0); Hemoglobin 9.8 GM/DL (12.0-16.0); Immature Granulocytes % 0.3 %; Immature Granulocytes Absolute 0.02 #; Lymphocytes # 1.6 10*3/uL (1.4-4.0); Lymphocytes % 27.9 % (21.3-54.2); Mean Corpuscular HGB Conc 31.5 GM/DL (32-36); Mean Corpuscular Hemoglobin 29 PG (27-34); Mean Corpuscular Volume 93.4 FL (87-102); Mean Platelet Volume 10.2 FL (9.6-12.0); Monocytes # 0.4 10*3/uL (0.11-0.8); Monocytes % 7.5 % (1.7-12.7); Neutrophils # 3.5 10*3/uL (1.4-7.4); Neutrophils % 60.4 % (38.7-73.9); Platelet Count 253 T/CUMM (130-400); Red Blood Count 3.33 MC/CUMM (3.8-5.5); Red Cell Distribution Width 13.9 % (9.3-17.3); White Blood Count 5.9 T/CUMM (4-12)
[2018-10-22 05:49] LABS: Calcium 8.5 MG/DL (8.5-10.1); Osmolality,Calculated 275.8 MOS/KG (273-304); Potassium 3.6 MMOL/L (3.5-5.1)
[2018-10-22] MEDS: DULoxetine 30 MG CAPSULE PO SCH ×2 (08:50→21:11)
[2018-10-22] MEDS: ASPIRIN EC 81 MG TABLET PO SCH (08:50)
[2018-10-22] MEDS: amLODIPine 10 MG TABLET PO SCH (08:50)
[2018-10-22] MEDS: clonazePAM 0.5 MG TABLET PO SCH ×2 (08:50→21:12)
[2018-10-22] MEDS: PANTOPRAZOLE 40 MG TABLET PO SCH (08:51)
[2018-10-22] MEDS: CARVEDILOL 12.5 MG TABLET PO SCH ×2 (08:51→21:11)
[2018-10-22] MEDS: ISOSORBIDE MONONITRATE 30 MG TABLET PO SCH (08:51)
[2018-10-22] MEDS: GABAPENTIN 300 MG CAPSULE PO SCH (08:51)
[2018-10-22] MEDS: TICAGRELOR 90 MG TABLET PO SCH ×2 (08:52→21:12)
[2018-10-22] MEDS: TOPIRAMATE 25 MG TABLET PO SCH ×2 (08:52→21:11)
[2018-10-22] MEDS: levETIRAcetam 500 MG TABLET PO SCH ×2 (16:01→21:12)
[2018-10-22] MEDS: ZALEPLON 5 MG CAPSULE PO PRN (21:11)
[2018-10-22] MEDS: ROSUVASTATIN 20 MG TABLET PO SCH (21:12)
[2018-10-23] MEDS: GABAPENTIN 300 MG CAPSULE PO SCH (09:54)
[2018-10-23] MEDS: clonazePAM 0.5 MG TABLET PO SCH (09:54)
[2018-10-23] MEDS: DULoxetine 30 MG CAPSULE PO SCH (09:54)
[2018-10-23] MEDS: ISOSORBIDE MONONITRATE 30 MG TABLET PO SCH (09:55)
[2018-10-23] MEDS: TOPIRAMATE 25 MG TABLET PO SCH (09:55)
[2018-10-23] MEDS: CARVEDILOL 12.5 MG TABLET PO SCH (09:55)
[2018-10-23] MEDS: levETIRAcetam 500 MG TABLET PO SCH (09:56)
[2018-10-23] MEDS: PANTOPRAZOLE 40 MG TABLET PO SCH (09:57)
[2018-10-23] MEDS: ASPIRIN EC 81 MG TABLET PO SCH (09:57)
[2018-10-23] MEDS: amLODIPine 10 MG TABLET PO SCH (09:57)
[2018-10-23] MEDS: TICAGRELOR 90 MG TABLET PO SCH (10:01)
[2018-10-23 15:02] VITALS: BP 105/57
== END 2018-10-23 15:46 | disposition home or self-care (01) ==
LOC: N.EDINP 12:43 → N.ED 12:43 → N.TELEN 16:35
PROVIDERS: ADMIT Internal Medicine Cardiovascular Disease; ATTEND Internal Medicine Cardiovascular Disease

== ENCOUNTER 2018-11-12 23:05 | Observation (INO) ==
[2018-11-13] MEDS ORDERED: DEXAMETHASONE 10 MG/1 ML VIAL ONE (01:32)
[2018-11-13] MEDS ORDERED: ONDANSETRON 4 MG/2 ML VIAL IV PRN (01:45)
[2018-11-13] MEDS ORDERED: ZALEPLON 5 MG CAPSULE PO PRN (01:47)
[2018-11-13] MEDS: TICAGRELOR 90 MG TABLET PO SCH ×2 (04:12→08:40)
[2018-11-13] MEDS: DULoxetine 30 MG CAPSULE PO SCH ×3 (04:12→20:37)
[2018-11-13] MEDS: CARVEDILOL 12.5 MG TABLET PO SCH ×3 (04:12→17:26)
[2018-11-13] MEDS: clonazePAM 0.5 MG TABLET PO SCH ×3 (04:13→20:37)
[2018-11-13] MEDS: levETIRAcetam 500 MG TABLET PO SCH ×3 (04:13→20:37)
[2018-11-13] MEDS: TOPIRAMATE 25 MG TABLET PO SCH ×3 (04:13→20:37)
[2018-11-13] MEDS: ASPIRIN EC 81 MG TABLET PO SCH (08:40)
[2018-11-13] MEDS: amLODIPine 10 MG TABLET PO SCH (08:41)
[2018-11-13] MEDS: ISOSORBIDE MONONITRATE 30 MG TABLET PO SCH (08:41)
[2018-11-13] MEDS: PANTOPRAZOLE 40 MG TABLET PO SCH (08:41)
[2018-11-13] MEDS ORDERED: CLOPIDOGREL 300 MG TABLET PO ONE (10:05)
[2018-11-13] MEDS: RANOLAZINE 500 MG TABLET PO SCH ×2 (10:33→20:37)
[2018-11-13] MEDS: ROSUVASTATIN 20 MG TABLET PO SCH (20:37)
[2018-11-14 05:25] LABS: Basophils # 0.1 10*3/uL (0.0-0.2); Basophils % 1.2 % (0.0-0.8); Eosinophils # 0.2 10*3/uL (0.0-0.87); Eosinophils % 4.4 % (0.00-10.9); Hematocrit 29.6 VOL% (35.7-47.0); Hemoglobin 9.3 GM/DL (12.0-16.0); Immature Granulocytes % 0.2 %; Immature Granulocytes Absolute 0.01 #; Lymphocytes # 1.2 10*3/uL (1.4-4.0); Lymphocytes % 27.9 % (21.3-54.2); Mean Corpuscular HGB Conc 31.4 GM/DL (32-36); Mean Corpuscular Hemoglobin 29 PG (27-34); Mean Corpuscular Volume 92.2 FL (87-102); Mean Platelet Volume 9.7 FL (9.6-12.0); Monocytes # 0.4 10*3/uL (0.11-0.8); Monocytes % 8.6 % (1.7-12.7); Neutrophils # 2.5 10*3/uL (1.4-7.4); Neutrophils % 57.7 % (38.7-73.9); Platelet Count 237 T/CUMM (130-400); Red Blood Count 3.21 MC/CUMM (3.8-5.5); Red Cell Distribution Width 13.7 % (9.3-17.3); White Blood Count 4.3 T/CUMM (4-12)
[2018-11-14 05:43] LABS: Osmolality,Calculated 274.7 MOS/KG (273-304); Potassium 3.8 MMOL/L (3.5-5.1)
[2018-11-14] MEDS ORDERED: CLOPIDOGREL 75 MG TABLET PO SCH (09:00)
[2018-11-14] MEDS: DULoxetine 30 MG CAPSULE PO SCH ×2 (09:17→22:29)
[2018-11-14] MEDS: levETIRAcetam 500 MG TABLET PO SCH ×2 (09:17→22:30)
[2018-11-14] MEDS: ASPIRIN EC 81 MG TABLET PO SCH (09:17)
[2018-11-14] MEDS: clonazePAM 0.5 MG TABLET PO SCH ×2 (09:18→22:30)
[2018-11-14] MEDS: ISOSORBIDE MONONITRATE 30 MG TABLET PO SCH (09:18)
[2018-11-14] MEDS: amLODIPine 10 MG TABLET PO SCH (09:18)
[2018-11-14] MEDS: CARVEDILOL 12.5 MG TABLET PO SCH ×2 (09:18→18:11)
[2018-11-14] MEDS: PANTOPRAZOLE 40 MG TABLET PO SCH (09:18)
[2018-11-14] MEDS: RANOLAZINE 500 MG TABLET PO SCH ×2 (09:18→22:29)
[2018-11-14] MEDS: TOPIRAMATE 25 MG TABLET PO SCH ×2 (09:18→22:29)
[2018-11-14] MEDS ORDERED: TICAGRELOR 90 MG TABLET PO ONE (17:48)
[2018-11-14] MEDS: TICAGRELOR 90 MG TABLET PO SCH (22:28)
[2018-11-14] MEDS: ROSUVASTATIN 20 MG TABLET PO SCH (22:29)
[2018-11-15 05:44] LABS: Basophils % 0.8 % (0.0-0.8); Eosinophils # 0.2 10*3/uL (0.0-0.87); Eosinophils % 3.2 % (0.00-10.9); Hematocrit 29.8 VOL% (35.7-47.0); Hemoglobin 9.4 GM/DL (12.0-16.0); Immature Granulocytes % 0.4 %; Immature Granulocytes Absolute 0.02 #; Lymphocytes # 1.4 10*3/uL (1.4-4.0); Lymphocytes % 26.3 % (21.3-54.2); Mean Corpuscular HGB Conc 31.5 GM/DL (32-36); Mean Corpuscular Hemoglobin 29 PG (27-34); Mean Corpuscular Volume 91.7 FL (87-102); Monocytes # 0.5 10*3/uL (0.11-0.8); Monocytes % 9.2 % (1.7-12.7); Neutrophils # 3.2 10*3/uL (1.4-7.4); Neutrophils % 60.1 % (38.7-73.9); Platelet Count 245 T/CUMM (130-400); Red Blood Count 3.25 MC/CUMM (3.8-5.5); Red Cell Distribution Width 13.6 % (9.3-17.3); White Blood Count 5.3 T/CUMM (4-12)
[2018-11-15 05:50] LABS: Calcium 8.4 MG/DL (8.5-10.1); Osmolality,Calculated 275.7 MOS/KG (273-304); Potassium 3.8 MMOL/L (3.5-5.1)
[2018-11-15 06:16] LABS: Platelet Estimate Normal; Polychromasia Few
[2018-11-15] MEDS: CARVEDILOL 12.5 MG TABLET PO SCH ×2 (09:52→17:34)
[2018-11-15] MEDS: TICAGRELOR 90 MG TABLET PO SCH (09:52)
[2018-11-15] MEDS: levETIRAcetam 500 MG TABLET PO SCH (09:52)
[2018-11-15] MEDS: ASPIRIN EC 81 MG TABLET PO SCH (09:52)
[2018-11-15] MEDS: DULoxetine 30 MG CAPSULE PO SCH (09:52)
[2018-11-15] MEDS: clonazePAM 0.5 MG TABLET PO SCH (09:52)
[2018-11-15] MEDS: PANTOPRAZOLE 40 MG TABLET PO SCH (09:52)
[2018-11-15] MEDS: amLODIPine 10 MG TABLET PO SCH (09:52)
[2018-11-15] MEDS: ISOSORBIDE MONONITRATE 30 MG TABLET PO SCH (09:52)
[2018-11-15] MEDS: RANOLAZINE 500 MG TABLET PO SCH (09:52)
[2018-11-15] MEDS: TOPIRAMATE 25 MG TABLET PO SCH (09:57)
[2018-11-15 15:41] VITALS: BP 137/75
== END 2018-11-15 18:10 | disposition home health service (06) ==
LOC: EDUNIT# → EDBD → N.ED 23:05 → N.EDINP 23:05 → SUATTDRO 11-13 01:45 → N.2E 11-13 03:17
PROVIDERS: ADMIT Internal Medicine; ATTEND Internal Medicine